=== PATIENT | male | born 1955 | race African-American/Black ===

== ENCOUNTER 2019-03-20 13:22 | Outpatient (CLI) | payer MEDICARE ==
--- NOTE | 2019-03-20 14:32 | RAD ---
XR Chest Pa Lat STANDARD HISTORY: Tachycardia COMPARISON: 11/02/2013 FINDINGS: The heart size is normal. The aorta is tortuous. The lungs are well expanded without focal areas of consolidation, pneumothorax or pleural effusions there are degenerative changes in the spine.. IMPRESSION: No radiographic evidence of acute cardiopulmonary process.
--- NOTE | 2019-03-20 14:45 | CT ---
CT ABDOMEN AND PELVIS WITH ORAL AND IV CONTRAST: HISTORY: Colon Cancer. Splenic flexure mass found during colonoscopy done today COMPARISON: Noncontrasted study of 02/16/2013 FINDINGS: The lung bases are unremarkable. No calcified gallstones are seen. No free air or free fluid is seen in the abdomen or pelvis. The spleen, pancreas, adrenal glands and kidneys are normal. There is a 7 mm cyst in the posterior aspect of the right lobe of the liver. There is an enlarged lef t para-aortic lymph node measuring 2.2 cm. There are vascular calcifications without evidence of aneurysmal dilatation of the abdominal aorta. T here are degenerative changes in the spine. No osteolytic or osteoblastic lesions are seen. A small hiatal hernia is noted. There is a splenic flexure mass. No abnormal dilatation of the small bowel loops is seen. A normal-appearing appendix is noted. IMPRESSION: Colonic malignancy with probable retroperitoneal lymph node metastasis.
[2019-03-20] MEDS ORDERED: Iopamidol 370 76% 100 ML VIAL ONE (16:20)
== END 2019-03-20 13:23 | disposition home or self-care (01) ==
LOC: BICCT 13:22
PROVIDERS: ATTEND Internal Medicine Gastroenterology
DX: C18.5 Malignant neoplasm of splenic flexure (principal); C79.9 Secondary malignant neoplasm of unspecified site
CPT/HCPCS: 36415; 71046; 74177; 80053; 82378; 85025; Q9967

== ENCOUNTER 2019-04-06 09:44 | Outpatient (CLI) | payer MEDICARE ==
--- NOTE | 2019-04-06 11:44 | PET ---
Nuclear medicine FDG PET/CT: (Positron emission tomography and computed tomography) DATE: 04/06/2019 HISTORY: 64-year-old male with colon cancer, initial staging. COMPARISON: none TECHNIQUE: IV injection of F-18 fluorodeoxyglucose (FDG) dose: 12.2 mCi. PET scan and attenuation correction CT performed from skull base to proximal thighs. FINDINGS: SUV (standard uptake values) numbers given are maximum SUVs. QCLR used. 1.5 x 1 cm mildly enlarged left supraclavicular lymph node with borderline FDG uptake, SUV 2.9. No suspicious FDG-avid lesions in the chest. Small focus of increased uptake, SUV 4.9, in left lobe of liver, hepatic segment 2. Segment of the splenic flexure of left colon with SUV of 11.5. Enlarged left para-aortic retroperitoneal lymph node with SUV of 8.8. Focus of increased uptake located in the region of the lower portion of prostate gland at midline or slightly to the left of that. SUV 7.8. IMPRESSION: 1) colon cancer involving splenic flexure of colon. 2) malignant metastatic left para-aortic retroperitoneal lymph node. 3) suspicious for single small solitary hepatic metastasis in left lobe. 4) FDG-avid focus in region of prostate gland. Uncertain whether this represents a prostate cancer or urine within urethra. Recommend correlation with serum PSA levels, and consider MRI of the prostate gland.
== END 2019-04-06 09:45 | disposition home or self-care (01) ==
LOC: PET 09:44
PROVIDERS: ATTEND Internal Medicine Hematology & Oncology
DX: C18.5 Malignant neoplasm of splenic flexure (principal); C77.2 Secondary and unspecified malignant neoplasm of intra-abdominal lymph nodes
CPT/HCPCS: 78815; A9552

== ENCOUNTER 2019-05-01 09:27 | Outpatient (CLI) | payer MEDICARE ==
[2019-05-01 11:08] VITALS: BMI 40.6
[2019-05-01 12:20] LABS: Anion Gap 15 mmol/L (10-20); BUN (Urea Nitrogen) 14 mg/dL (8.4-25.7); Calc. Creatinine Clearance 92 mL/min (70-130); Calcium 9.8 mg/dL (7.8-10.44); Carbon Dioxide 19 mmol/L (23-31); Chloride 106 mmol/L (98-107); Estimated GFR-MDRD 65; Glucose 237 mg/dL (80-115); Sodium 137 mmol/L (136-145)
[2019-05-01 12:33] LABS: Hemoglobin A1c 7.2 % (4.0-6.0)
[2019-05-01 12:34] LABS: #Lymphocytes 1.6 thou/uL (1.20-3.40); #Monocytes 0.6 thou/uL (0.11-0.59); #Neutrophils 9.3 thou/uL (1.40-6.50); %Eosinophils 0.2 % (0.0-10.0); %Lymphocytes 13.7 % (21.0-51.0); %Monocytes 5.3 % (0.0-10.0); %Neutrophils 80.7 % (42.0-75.0); Band 2 % (5-11); Hemoglobin 11.2 g/dL (14.0-18.0); Lymphocytes 13 % (21-51); MDiff Complete? YES; Mean Corpuscular HGB CONC 30.7 g/dL (32.0-36.0); Mean Corpuscular Hemoglobin 24.6 pg (27.0-31.0); Mean Corpuscular Volume 80.2 fL (78.0-98.0); Mean Platelet Volume 9.3 fL (7.4-10.4); Monocytes 12 % (0-10); Neutrophil 73 % (42-75); Platelet Count 287 thou/uL (130-400); RBC Distribution Width 20.3 % (11.5-14.5); RBC Morphology Normal; Red Blood Cell (RBC) Count 4.55 mill/uL (4.70-6.10); White Blood Cell (WBC) Count 11.5 thou/uL (4.8-10.8)
--- NOTE | 2019-05-01 15:24 | EKG ---
Test Reason : Blood Pressure : / mmHG Vent. Rate : 095 BPM Atrial Rate : 095 BPM P-R Int : 142 ms QRS Dur : 090 ms QT Int : 378 ms P-R-T Axes : 061 015 040 degrees QTc Int : 475 ms Normal sinus rhythm Normal ECG When compared with ECG of 02-NOV-2013 15:18, QT has lengthened Confirmed by DR. Dirk WATERMAN ([id number]) on 05/01/2019 3:24:10 PM Referred By: TOBIAS Confirmed By:DR. Dirk WATERMAN
== END 2019-05-01 09:28 | disposition home or self-care (01) ==
LOC: LABBT 09:27
PROVIDERS: ATTEND Surgery
DX: Z01.818 Encounter for other preprocedural examination (principal); C18.9 Malignant neoplasm of colon, unspecified
CPT/HCPCS: 80048; 83036; 85025; 93005; 93010

== ENCOUNTER 2019-05-21 13:04 | Inpatient (IN) | payer MEDICARE ==
--- NOTE | 2019-05-21 14:41 | CON ---
DATE OF CONSULTATION: The patient was seen at [facility]. The patient has acute kidney injury. This patient is followed up in clinic. I would recommend hydration for this patient as well as changing Lovenox to unfractionated heparin and starting the patient on a bicarb drip to control the acidosis. Job ID: [id number]
[2019-05-21] MEDS: Sodium Bicarbonate 150 MEQ in Dextrose 5% in Water 1,000 ML IV SCH (15:20)
--- NOTE | 2019-05-21 15:27 | PDOC.FPRHP ---
- History of Present Illness Chief Complaint: weakness, vomiting History of Present Illness: Pt recently discharged from hospital s/p colectomy for adenocarcinoma complicated by saddle embolus found on CTA. Stablizied and went to inpt rehab facility where he had episode of hypotension, "couldn't see anything"/lost his vision but denies syncope, and received IV fluids. His labs then showed a creatinine rise from his baseline of 1.4 to 4.0 yesterday and then 6.[address] Park was called and recommended inpatient admission for treatment of NIKA. Otherwise, pt has been feeling generally weak since discharge. Endorses vomiting after meals frequently. Denies fever or other symptoms. Has had buitrago catheter in place and was diagnosed with CAUTI just prior to discharge. Plan was to d/c the buitrago and start flomax, but this has not yet been done. Pt denies pain of any sort except for some pain "in his bottom" where he has a sacral ulcer. ED Course: Direct admit from inpt rehab. - Allergies/Adverse Reactions Allergies Allergy/AdvReac Type Severity Reaction Status Date / Time No Known Allergies Allergy Verified 05/16/19 22:53 - Home Medications Medication Instructions Recorded Confirmed Type Acetaminophen [Tylenol Regular 650 mg PO Q6H PRN tab 05/19/19 Rx Strength] Enoxaparin Sodium [Lovenox] 100 mg SC 0900,2100 syringe 05/19/19 Rx HumaLOG [HumaLOG Vial] SC .BEDTIME SLIDING SC PRN vial 05/19/19 Rx HumaLOG [HumaLOG Vial] SC .MILD SLIDING SCALE PRN vial 05/19/19 Rx Lisinopril [Prinivil] 5 mg PO DAILY #30 tablet 05/19/19 Rx Metoprolol Tartrate [Lopressor] 12.5 mg PO BID tab 05/19/19 Rx Ondansetron [Zofran ODT] 4 mg PO Q6H PRN tab 05/19/19 Rx Pantoprazole [Protonix] 40 mg PO DAILY tab 05/19/19 Rx Piperacillin/Tazobactam [Zosyn] 3.375 gm IVPB 0200,0800,1400,2000 05/19/19 Rx 14 Days vial Rosuvastatin [Crestor] 20 mg PO DAILY tab 05/19/19 Rx Tamsulosin HCl [Flomax] 0.4 mg PO DAILY cap 05/19/19 Rx metFORMIN [Glucophage] 1,000 mg PO BID-WM tab 05/19/19 Rx - History PMHx: - Colon adenocarcinoma - Saddle embolus - HTN - HLD - DM - Anemia - CKD PSHx: - Colectomy for adenocarcinoma FHx: nc Social: - Engaged to fiance. - Denies smoking, alcohol, drugs. - Review of Systems General: denies: fever/chills, weight/appetite/sleep changes Eyes: reports: vision changes (loss of vision during hypotensive episode) ENT: denies: nasal congestion, rhinorrhea Respiratory: reports: shortness of breath. denies: cough, congestion Cardiovascular: denies: chest pain, palpitation, edema Gastrointestinal: reports: vomiting. denies: nausea, diarrhea, constipation Genitourinary: denies: dysuria Skin: denies: rashes Musculoskeletal: denies: pain Neurological: reports: weakness. denies: syncope Psychological: denies: anxiety, depression - Vital signs BP: 106/64 HR: 102 RR: 20 Tmax: 99.1 Pox: 97% on RA - Physical Exam Constitutional: awake, alert and oriented HEENT: normocephalic and atraumatic, PERRLA, conjunctiva clear, no scleral icterus, grossly normal hearing, normal nasal mucosa, MMM Neck: trachea midline Heart: RRR, normal S1/S2, no murmurs/rubs/gallops Lungs: CTAB -Lungs: SOB while talking, moderate respiratory distress, no crackles or wheezing on exam Musculoskeletal: normal structure, normal tone Neurological: no focal deficit Skin: no rash/lesions Heme/Lymphatic: no unusual bruising or bleeding Psychiatric: normal mood and affect FMR H&P: Results - Labs Result Diagrams: 05/21/19 18:45 05/21/19 18:45 FMR H&P: A/P - Problem List (1) Acute kidney injury Current Visit: Yes Status: Acute Code(s): N17.9 - ACUTE KIDNEY FAILURE, UNSPECIFIED (2) Adenocarcinoma of colon Current Visit: No Status: Chronic Code(s): C18.9 - MALIGNANT NEOPLASM OF COLON, UNSPECIFIED (3) CKD (chronic kidney disease) Current Visit: No Status: Chronic Code(s): N18.9 - CHRONIC KIDNEY DISEASE, UNSPECIFIED Qualifiers: Chronic kidney disease stage: stage 2 (mild) Qualified Code(s): N18.2 - Chronic kidney disease, stage 2 (mild) (4) Diabetes Current Visit: No Status: Chronic Code(s): E11.9 - TYPE 2 DIABETES MELLITUS WITHOUT COMPLICATIONS Qualifiers: Diabetes mellitus type: type 2 Diabetes mellitus long-term insulin use: without long-term use (5) HLD (hyperlipidemia) Current Visit: No Status: Chronic Code(s): E78.5 - HYPERLIPIDEMIA, UNSPECIFIED (6) HTN (hypertension) Current Visit: No Status: Chronic Code(s): I10 - ESSENTIAL (PRIMARY) HYPERTENSION - Plan 64-year-old male w/ recent hospitalization for colectomy, adenocarcinoma of colon, and saddle embolus, readmitted from inpatient rehab facility for: Acute kidney injury, etiology currently unknown, on CKD stage 3 - pt discharged w/ Cr of 1.41, returning w/ Cr of 6.9 - Anion Gap of 13 - Possibly prerenal 2/2 increased output from colostomy, feeling weak and decreased PO intake, also vomiting after meals this weekend - Other causes such as intra-renal or acute tubular necrosis not ruled out. Post -renal causes such as obstruction unlikely since pt has had Buitrago since his discharge last Wednesday - Pt was discharged on ceftriaxone for UTI and it is unclear from records whether this resolved or if antibiotics were discontinued. - Dr. Park consulted, appreciate recs. - Fluid resuscitate w/ sodium bicarbonate in D5W at 125 ml/hr - Bilateral Renal U/S pending - CMP and CBC in AM - Urine sodium, urine creatinine - Strict I/Os, continue buitrago catheter - Hold all nephrotoxic medications Sacral wound ulcer, stage 3 - Wound care consult Recent history of adenocarcinoma s/p colectomy, complicated by saddle embolus treated w/ anticoagulation - Per Dr. Park, lovenox changed to heparin 5000 Units TID subQ Normocytic anemia - Hgb 7.7 on admission - continue to monitor Chronic conditions: HTN HLD Diabetes mellitus - pt has been hypotensive, hold BP meds - continue statin - hold metformin, insulin sliding scale. Code : DNR Diet: renal low protein, carb consistent VTE PPx: on heparin for saddle embolus GI PPx: protonix Disposition/LOS: Admit to inpatient, medical. FMR H&P: Upper Level - Plan Date/Time: 05/21/19 1524 IDhaval MD, have evaluated this patient and agree with findings/plan as outlined by internal controls manager resident. Pertinent changes/additions are listed here. Pritesh Deleon is a 64 year old M with a PMH of DM2, CKD, HTN, CAD, recent hx of saddle embolus, hx of adenocarcinoma and recent hospital stay for colectomy. He was directly admitted to [facility] today from outside rehab facility for worsening kidney function. When patient was discharged from previous hospital stay on 05/18/19, his Cr was 1.41. Today his Cr had worsened to 6.1. Patient states that he has had worsening weakness over the last day or two. There were an episode, as recalled by the patient, where he got very lightheaded at the rehab facility and was told his BP was low. They gave him fluids in the facility and these symptoms improve. He denies any new pain, fever, chills, chest pain, dyspnea, n/v, abdominal painMD at rehab facility reported significant output from ostomy, about 1.5 L in a day. During his hospital stay , he had a prolonged stay because he developed a saddle embolus. Dr. Park was consulted by MD at Rehab facility. Recommended admission. Dr. Park saw patient on admission here at [facility] and recommended D5W with sodium bicarb , also recommended heparin for treatment of saddle embolus. Bilateral renal US was ordered. Patient is stable from a respiratory standpoint. When he was discharged from hospital on 05/18, he was not requiring O2 to maintain decent sats. He was on supplemental O2 when evaluated on the floor and his BP was 103 systolic, afebrile, vitals have not yet been recorded yet. We are admitted patient to inpatient surgical. Dr. Park has been consulted. Will continue D5W with Sodium bicarb, continue heparin for tx of saddle embolism. Checking b/l renal US. It is possible that the reason for the NIKA could be prerenal in nature. The patient had the recent episode of hypotension in the rehab facility and he has had significant output from colostomy. Will consult Dr. Landin in the morning to let him know patient has returned to hospital. Will monitor vitals closely overnight and trend labs. Please see internal controls manager note above for full H&P, which I have reviewed and agree with.
[2019-05-21] MEDS ORDERED: Ondansetron PF 4 MG/2 ML Vial IVP PRN (15:53)
[2019-05-21] MEDS ORDERED: Acetaminophen 325 MG TAB PO PRN (15:53)
[2019-05-21] MEDS ORDERED: Acetaminophen 650 MG Suppository PR PRN (15:53)
[2019-05-21] MEDS ORDERED: Ondansetron ODT 4 MG TAB PO PRN (15:53)
--- NOTE | 2019-05-21 18:23 | ULT ---
RENAL ULTRASOUND: History: Acute renal insufficiency. FINDINGS: Real-time imaging of the right and left kidneys were performed. The right kidney measures 11.4, the l eft kidney measures 13.1 cm in size. No signs of cysts, mass, or obstruction. The bladder was empty a t the time of this exam. Of incidental note is what appears to be a distended gallbladder or possibly some type of fluid in th e region of the gallbladder. This is incompletely assessed on this exam. IMPRESSION: 1. Unremarkable renal ultrasound. 2. Possible distended gallbladder versus more likely some type of septated fluid collection in the re gion of the gallbladder. In reviewing a previous CT angio of 05-15-19 there is some pericapsular fluid seen adjacent to the liver and this probably the density seen on this ultrasound. POS: JACK
[2019-05-21 19:03] LABS: #Eosinphils 0.2 thou/uL (0.0-0.7); #Lymphocytes 1.3 thou/uL (1.20-3.40); #Monocytes 0.6 thou/uL (0.11-0.59); #Neutrophils 6.6 thou/uL (1.40-6.50); %Basophils 0.2 % (0.0-1.0); %Eosinophils 2.3 % (0.0-10.0); %Lymphocytes 14.6 % (21.0-51.0); %Monocytes 6.4 % (0.0-10.0); %Neutrophils 76.5 % (42.0-75.0); Hemoglobin 7.7 g/dL (14.0-18.0); Mean Corpuscular HGB CONC 31.3 g/dL (32.0-36.0); Mean Corpuscular Hemoglobin 24.8 pg (27.0-31.0); Mean Platelet Volume 8.9 fL (7.4-10.4); Platelet Count 388 thou/uL (130-400); Red Blood Cell (RBC) Count 3.12 mill/uL (4.70-6.10); White Blood Cell (WBC) Count 8.6 thou/uL (4.8-10.8)
[2019-05-21 19:23] LABS: ALT (SGPT) 42 U/L (8-55); AST (SGOT) 59 U/L (5-34); Albumin 2.4 g/dL (3.4-4.8); Alkaline Phosphatase 128 U/L (40-110); Anion Gap 19 mmol/L (10-20); BUN (Urea Nitrogen) 33 mg/dL (8.4-25.7); Bilirubin, Total 0.5 mg/dL (0.2-1.2); Calc. Creatinine Clearance 0 mL/min (70-130); Calcium 7.7 mg/dL (7.8-10.44); Carbon Dioxide 14 mmol/L (23-31); Chloride 103 mmol/L (98-107); Estimated GFR-MDRD 9; Globulin 4.3 g/dL (2.4-3.5); Glucose 96 mg/dL (80-115); Potassium 4.9 mmol/L (3.5-5.1); Protein, Total 6.7 g/dL (5.8-8.1); Sodium 131 mmol/L (136-145)
[2019-05-21] MEDS ORDERED: Dextrose 50% Abboject 50 ML SYRINGE SLOW IVP PRN (20:02)
[2019-05-21] MEDS ORDERED: Dextrose 5% in Water 1,000 ML IV PRN (20:02)
[2019-05-21] MEDS ORDERED: Heparin 5,000 UNITS/ML VIAL SC SCH (21:00)
[2019-05-21] MEDS ORDERED: Prevnar 13-Val Conj/PF 0.5 ML SYRINGE IM ONE (21:00)
[2019-05-21 21:48] LABS: Platelet Count 399 thou/uL (130-400)
--- NOTE | 2019-05-21 21:48 | RAD ---
XR Chest 1 View HISTORY: Dyspnea and tachycardia. COMPARISON: 05/20/2019 study. FINDINGS: The heart size appears borderline enlarged. There are atherosclerotic changes of aorta. Racheal vation to the right hemidiaphragm is again noted. Some linear atelectatic change or scar is seen within the lung bases. IMPRESSION: Borderline cardiomegaly with linear atelectasis or scar within the lung bases.
[2019-05-21 21:53] LABS: INR-International Normal Ratio 1.3; Prothrombin Time 16.6 SEC (12.0-14.7)
[2019-05-21 21:54] LABS: PTT 74.3 SEC (22.9-36.1)
[2019-05-21] MEDS ORDERED: Sodium Chloride 0.9% 500 ML IV SCH (22:00)
[2019-05-22] MEDS: Sodium Bicarbonate 150 MEQ in Dextrose 5% in Water 1,000 ML IV SCH ×3 (00:02→17:08)
[2019-05-22] MEDS: Heparin 25,000 units/D5W 500 ML IVPB SCH ×2 (00:03→16:52)
[2019-05-22] MEDS: Heparin 10,000 UNITS/ 10 ML VIAL SLOW IVP SCH (00:03)
[2019-05-22] MEDS ORDERED: Lactated Ringer's 1,000 ML IV SCH (00:30)
[2019-05-22 00:50] LABS: Anion Gap 20 mmol/L (10-20); BUN (Urea Nitrogen) 33 mg/dL (8.4-25.7); Calc. Creatinine Clearance 14 mL/min (70-130); Calcium 7.4 mg/dL (7.8-10.44); Carbon Dioxide 15 mmol/L (23-31); Chloride 103 mmol/L (98-107); Estimated GFR-MDRD 8; Glucose 90 mg/dL (80-115); Potassium 4.7 mmol/L (3.5-5.1); Sodium 133 mmol/L (136-145)
[2019-05-22 02:06] LABS: #Eosinphils 0.2 thou/uL (0.0-0.7); #Lymphocytes 1.8 thou/uL (1.20-3.40); #Monocytes 0.8 thou/uL (0.11-0.59); #Neutrophils 7.9 thou/uL (1.40-6.50); %Basophils 0.1 % (0.0-1.0); %Eosinophils 2.1 % (0.0-10.0); %Lymphocytes 16.9 % (21.0-51.0); %Monocytes 7.6 % (0.0-10.0); %Neutrophils 73.4 % (42.0-75.0); Hemoglobin 7.6 g/dL (14.0-18.0); Mean Corpuscular HGB CONC 31.3 g/dL (32.0-36.0); Mean Corpuscular Hemoglobin 24.5 pg (27.0-31.0); Mean Corpuscular Volume 78.3 fL (78.0-98.0); Mean Platelet Volume 8.9 fL (7.4-10.4); Platelet Count 360 thou/uL (130-400); White Blood Cell (WBC) Count 10.7 thou/uL (4.8-10.8)
[2019-05-22 02:39] LABS: Actual Bicarbonate (HCO3a) 15.9 mEq/L (22-28); Base Excess (BEa) -6.4 mEq/L (-2.0 to +3.0); Calcium, Ionized 1.03 mmol/L (1.12-1.30); Carboxyhemoglobin (COHb) 1.1 gm% (0.0-3.0); Hemoglobin (Hb) 8.4 g/dL (14.0-18.0); O2 Tension (PaO2) 67.1 mmHg (> 80.0); Potassium - ABG Lab 4.67 mmol/L (3.70-5.30); pH, Arterial 7.48 (7.35-7.45)
[2019-05-22 02:57] LABS: CO2 Tension 21.9 mmHg (35.0-45.0); Puncture Site RBRACHIAL
[2019-05-22 02:58] LABS: ALV-art Gradient 162.205 (0-20)
[2019-05-22] MEDS ORDERED: Norepinephrine 8 MG in Dextrose 5% in Water 242 ML IVPB PRN (03:04)
[2019-05-22 03:06] LABS: ALT (SGPT) 34 U/L (8-55); AST (SGOT) 49 U/L (5-34); Albumin 2.2 g/dL (3.4-4.8); Alkaline Phosphatase 126 U/L (40-110); Anion Gap 18 mmol/L (10-20); BUN (Urea Nitrogen) 33 mg/dL (8.4-25.7); Bilirubin, Total 0.5 mg/dL (0.2-1.2); Calc. Creatinine Clearance 14 mL/min (70-130); Calcium 7.5 mg/dL (7.8-10.44); Carbon Dioxide 16 mmol/L (23-31); Chloride 103 mmol/L (98-107); Estimated GFR-MDRD 8; Globulin 3.9 g/dL (2.4-3.5); Glucose 113 mg/dL (80-115); Potassium 4.7 mmol/L (3.5-5.1); Protein, Total 6.1 g/dL (5.8-8.1); Sodium 132 mmol/L (136-145)
[2019-05-22] MEDS ORDERED: Heparin 10,000 UNITS/ 10 ML VIAL FS SCH (03:30)
[2019-05-22] MEDS ORDERED: Vancomycin HCl 1.25 GM in Sodium Chloride 0.9% 250 ML 250 ML IVPB SCH (03:45)
[2019-05-22] MEDS: MEROPENEM 1 GM/50 ML 1 GM in Premix Bag 1 BAG IVPB SCH (04:27)
--- NOTE | 2019-05-22 04:48 | PDOC.EVN ---
Event Note - Event Note Event Note: Pt's decompensated with pressures in 80's/40's. Did not respond to 1.5 L bolus around midnight. Oxygen saturations remained stable. CXR revealed mild congestion, on exam lungs were clear to auscultation, no LE edema, BNP elevated ~500. Due to pt not holding pressures he was transferred to ICU and levophed drip started. Hgb stable. Spoke with Dr. Park who recommended a trialysis catheter as he would need dialysis in the near future for NIKA, creatinine ~8, not responding to fluids, oliguric. Dr. Salguero placed trialysis catheter which was used for pressors beginning around [id number]. Pt AAO x 3 during episode. Tai Mcmillan,
--- NOTE | 2019-05-22 06:28 | PDOC.FM ---
- Subjective Subjective: Overnight experienced hypotension, did not respond to fluids therefore was started on pressors and continues to need them this AM to maintain BP. Due to ESRD tunnel catheter was placed. This morning reports feeling well. Denies chest pain or SOB. - Objective MAR Reviewed: Yes Vital Signs & Weight: Vital Signs (12 hours) Temp Temp Temp Pulse Pulse Pulse Pulse 05/22/19 01:43 98.5 F 98.5 F 128 H 135 H 134 H 05/22/19 01:42 05/22/19 01:35 98.5 F 128 H 05/21/19 23:00 98.3 F 124 H 05/21/19 19:53 98.6 F 120 H Pulse Resp Resp BP BP BP BP 05/22/19 01:43 135 H 28 H 68/41 L 94/57 L 87/46 L 79/44 L 05/22/19 01:42 05/22/19 01:35 28 H 05/21/19 23:00 20 05/21/19 19:53 24 H BP Pulse Ox Pulse Ox Pulse Ox Pulse Ox Pulse Ox 05/22/19 01:43 93 L 90 L 92 L 93 L 05/22/19 01:42 58/48 L 05/22/19 01:35 68/41 L 93 L 05/21/19 23:00 99/51 L 95 05/21/19 19:53 107/65 94 L Weight Weight 104.326 kg Result Diagrams: 05/22/19 01:50 05/22/19 01:50 Phys Exam - Physical Examination Constitutional: NAD HEENT: moist MMs Neck: supple Respiratory: no wheezing, clear to auscultation bilateral Cardiovascular: RRR Gastrointestinal: soft, non-tender, positive bowel sounds Musculoskeletal: no edema, pulses present Neurological: moves all 4 limbs Psychiatric: normal affect, A&O x 3 Skin: no rash Dx/Plan - Plan Plan: Shock requiring pressors, likely multifactorial cardiogenic/septic - Attempt to wean pressors - Giving 1U pRBCs this morning due to anemia - Palliative care consulted Acute kidney injury, unknown etiology, on CKD stage 3 - Dr. Park consulted, appreciate recs - Bilateral Renal US unremarkable - Urine sodium, urine creatinine pending - Strict I/Os, continue buitrago catheter. Hold all nephrotoxic medications - Continue D5W with NaHCO3 @125 ml - Trialysis catheter placed 05/22 Sacral wound ulcer, stage 3 - Wound care Recent history of adenocarcinoma s/p colectomy, complicated by saddle embolus treated w/ anticoagulation - Currently on Heparin gtt - Continue to check PTT and adjust accordingly Normocytic anemia - Hgb 7.6 this AM - Transfusing 1U pRBCs, 2hr post transfusion H&H - Continue to monitor HTN - Currently hypotensive HLD - On Crestor at home. Currently held Diabetes mellitus - ACHS accuchecks. Hypoglycemic protocol - Hold metformin, SSI. Code: DNR Diet: Renal low protein, carb consistent VTE PPx: Ther. heparin for saddle embolus GI PPx: Protonix
[2019-05-22 07:14] LABS: PTT Greater than 250.0 SEC (22.9-36.1)
[2019-05-22 08:26] LABS: Lactic Acid 1.3 mmol/L (0.5-2.2)
[2019-05-22] MEDS ORDERED: AMOXicillin 250 MG CAP PO SCH (09:00)
[2019-05-22] MEDS ORDERED: Rosuvastatin 20 MG TAB PO SCH (09:00)
--- NOTE | 2019-05-22 09:36 | RAD ---
SINGLE VIEW CHEST: Date: 05/22/19 COMPARISON: 05/14/19. HISTORY: Respiratory distress. FINDINGS: Single view of the chest shows a normal sized cardiomediastinal silhouette. There is no evidence of c onsolidation, mass, or pleural effusion. Degenerative changes are seen in the spine. IMPRESSION: No evidence of acute cardiopulmonary disease. POS: CET
--- NOTE | 2019-05-22 10:15 | PRG ---
DATE OF SERVICE: 05/22/2019 During night Mr. Deleon became hypotensive and he was transferred to the ICU, where he is currently on the Levophed drip. His overall prognosis is extremely poor. He also has advanced acute NIKA, possibly secondary to renal vein thrombosis given that he has already has a pulmonary embolus. In the event, because of his renal insufficiency has been switched to unfractionated heparin instead of Lovenox. He remains on pressor agents. We will continue to follow with the boiler reliner. Job ID: [id number]
--- NOTE | 2019-05-22 10:24 | PRG ---
DATE OF SERVICE: 05/22/2019 SUBJECTIVE: Patient was seen and examined at bedside and overnight events noted. Patient denies any shortness of breath or chest pain or palpitation. No history of nausea or vomiting or diarrhea or fever or chills or cramps. OBJECTIVE: GENERAL: This is an obese male, in no apparent distress. Very lethargic. VITAL SIGNS: Temperature 99.0. Heart rate 103. Respiratory rate 27. Blood pressure 96/53. HEENT: Atraumatic, normocephalic. Oral mucosa is moist NECK: Supple. CARDIOVASCULAR: S1, S2 heard. Rate and rhythm regular. RESPIRATORY: Clear to auscultation. GASTROINTESTINAL: Abdomen is soft. MUSCULOSKELETAL: No tenderness. No edema. DERMATOLOGIC: No skin rash. NEUROLOGIC: Alert and awake and oriented X3. No focal neurologic deficits. Moving all the extremities. PSYCHIATRIC: Mood and affect normal. LABORATORY DATA: Hemoglobin is 7.6. Potassium 4.7, BUN is 33, and creatinine is 8.09. ASSESSMENT AND PLAN: 1. Acute kidney injury. Creatinine is stable. No much significant urine output. No acute indication for dialysis. Continue supportive care. The patient was hypotensive, most likely ischemic acute tubular necrosis. 2. Hyponatremia. Continue hydration. 3. Metabolic acidosis, per BMP. 4. Lactic acidosis, better. 5. Hypoalbuminemia. 6. Anemia of chronic disease. 7. Edema, controlled. 8. History of hypertension and currently hypotensive. Continue supportive care including antibiotics. Avoid nephrotoxins. Renally dose the medications. Monitor vancomycin level and we will follow. Thank you for the consult. Job ID: [id number]
[2019-05-22] MEDS: HumaLOG 300 UNITS/3 ML VIAL SC PRN ×3 (11:02→21:17)
--- NOTE | 2019-05-22 13:26 | PDOC.GSPN ---
Surgery Progress Note: Subj - Subjective Narrative: Patient awake and alert. Denies pain Surgery Progress Note: Obj - Vital signs Vital signs: Vital Signs - Most Recent Temp Pulse Resp BP Pulse Ox 97.5 F L 128 H 28 H 94/57 L 100 05/22/19 12:00 05/22/19 01:43 05/22/19 01:43 05/22/19 09:47 05/22/19 08:00 - Physical Exam General: no distress Abdomen: soft, non tender, nondistended Wound: ostomy/colostomy (mucosa pink. stool in bag) Surgery Progress Note: Results - Labs Result Diagrams: 05/22/19 01:50 05/22/19 01:50 Lab results: Laboratory Results - last 24 hr 05/22/19 05/22/19 05/22/19 01:49 01:50 01:50 WBC 10.7 RBC 3.10 L Hgb 7.6 L Hct 24.3 L MCV 78.3 MCH 24.5 L MCHC 31.3 L RDW 19.0 H Plt Count 360 MPV 8.9 Neutrophils % 73.4 Neutrophils % (Manual) Not Reportable Lymphocytes % 16.9 L Monocytes % 7.6 Eosinophils % 2.1 Basophils % 0.1 Neutrophils # 7.9 H Lymphocytes # 1.8 Monocytes # 0.8 H Eosinophils # 0.2 Basophils # 0.0 APTT Specimen Type Puncture Site Bicarbonate Actual ABG pH ABG pCO2 ABG pO2 ABG O2 Sat Calc/Jacey ABG O2 Content ABG Base Excess ABG Hematocrit ABG Hemoglobin ABG Oxyhemoglobin ABG Carboxyhemoglobin ABG Methemoglobin ABG Deoxyhemoglobin A-a O2 Gradient Ionized Calcium Inspired O2 Sodium 132 L Potassium 4.7 Chloride 103 Carbon Dioxide 16 L Anion Gap 18 BUN 33 H Creatinine 8.09 H Estimated GFR (MDRD) 8 Glucose 113 POC Glucose Lactic Acid 2.4 H Calcium 7.5 L Total Bilirubin 0.5 AST 49 H ALT 34 Alkaline Phosphatase 126 H B-Natriuretic Peptide Serum Total Protein 6.1 Albumin 2.2 L Globulin 3.9 H Albumin/Globulin Ratio 0.6 L Blood Type Antibody Screen Crossmatch 05/22/19 05/22/19 05/22/19 01:50 01:56 02:19 WBC RBC Hgb Hct MCV MCH MCHC RDW Plt Count MPV Neutrophils % Neutrophils % (Manual) Lymphocytes % Monocytes % Eosinophils % Basophils % Neutrophils # Lymphocytes # Monocytes # Eosinophils # Basophils # APTT Specimen Type ARTERIAL Puncture Site RBRACHIAL Bicarbonate Actual 15.9 L ABG pH 7.48 H ABG pCO2 21.9 L* ABG pO2 67.1 ABG O2 Sat Calc/Jacey 93.3 L ABG O2 Content 11.0 L ABG Base Excess -6.4 L ABG Hematocrit 25.0 L ABG Hemoglobin 8.4 L ABG Oxyhemoglobin 92.0 L ABG Carboxyhemoglobin 1.1 ABG Methemoglobin 0.30 ABG Deoxyhemoglobin 6.6 H A-a O2 Gradient 162.205 H Ionized Calcium 1.03 L Inspired O2 36 Sodium 130 L Potassium 4.67 Chloride 101 Carbon Dioxide Anion Gap BUN Creatinine Estimated GFR (MDRD) Glucose POC Glucose 112 H Lactic Acid Calcium Total Bilirubin AST ALT Alkaline Phosphatase B-Natriuretic Peptide 514.7 H Serum Total Protein Albumin Globulin Albumin/Globulin Ratio Blood Type Antibody Screen Crossmatch 05/22/19 05/22/19 05/22/19 03:09 06:18 07:55 WBC RBC Hgb Hct MCV MCH MCHC RDW Plt Count MPV Neutrophils % Neutrophils % (Manual) Lymphocytes % Monocytes % Eosinophils % Basophils % Neutrophils # Lymphocytes # Monocytes # Eosinophils # Basophils # APTT Greater than 250.0 H* Specimen Type Puncture Site Bicarbonate Actual ABG pH ABG pCO2 ABG pO2 ABG O2 Sat Calc/Jacey ABG O2 Content ABG Base Excess ABG Hematocrit ABG Hemoglobin ABG Oxyhemoglobin ABG Carboxyhemoglobin ABG Methemoglobin ABG Deoxyhemoglobin A-a O2 Gradient Ionized Calcium Inspired O2 Sodium Potassium Chloride Carbon Dioxide Anion Gap BUN Creatinine Estimated GFR (MDRD) Glucose POC Glucose Lactic Acid 1.3 Calcium Total Bilirubin AST ALT Alkaline Phosphatase B-Natriuretic Peptide Serum Total Protein Albumin Globulin Albumin/Globulin Ratio Blood Type B POSITIVE Antibody Screen NEGATIVE Crossmatch See Detail 05/22/19 10:52 WBC RBC Hgb Hct MCV MCH MCHC RDW Plt Count MPV Neutrophils % Neutrophils % (Manual) Lymphocytes % Monocytes % Eosinophils % Basophils % Neutrophils # Lymphocytes # Monocytes # Eosinophils # Basophils # APTT Specimen Type Puncture Site Bicarbonate Actual ABG pH ABG pCO2 ABG pO2 ABG O2 Sat Calc/Jacey ABG O2 Content ABG Base Excess ABG Hematocrit ABG Hemoglobin ABG Oxyhemoglobin ABG Carboxyhemoglobin ABG Methemoglobin ABG Deoxyhemoglobin A-a O2 Gradient Ionized Calcium Inspired O2 Sodium Potassium Chloride Carbon Dioxide Anion Gap BUN Creatinine Estimated GFR (MDRD) Glucose POC Glucose 217 H Lactic Acid Calcium Total Bilirubin AST ALT Alkaline Phosphatase B-Natriuretic Peptide Serum Total Protein Albumin Globulin Albumin/Globulin Ratio Blood Type Antibody Screen Crossmatch Surgery Progress Note: A/P - Problem (1) Adenocarcinoma of colon Current Visit: No Code(s): C18.9 - MALIGNANT NEOPLASM OF COLON, UNSPECIFIED Status: Chronic - Plan Plan: I suspect the high output ileostomy to be partially responsible for his renal failure. -continue supportive care -appreciate palliative care
[2019-05-22] MEDS: Norepinephrine 8 MG in Dextrose 5% in Water 242 ML IVPB SCH (16:52)
[2019-05-23] MEDS: MEROPENEM 1 GM/50 ML 1 GM in Premix Bag 1 BAG IVPB SCH (04:07)
[2019-05-23] MEDS: Sodium Bicarbonate 150 MEQ in Dextrose 5% in Water 1,000 ML IV SCH ×2 (04:07→13:48)
--- NOTE | 2019-05-23 06:12 | PDOC.FM ---
- Subjective Subjective: Feeling well. No overnight events. Still on the levoph. Denies chest pain, shortness of breath, lightheadedness. Denies pain. - Objective MAR Reviewed: Yes Vital Signs & Weight: Vital Signs (12 hours) Temp Pulse Ox 05/23/19 04:00 98.4 F 05/23/19 00:00 99.1 F 05/22/19 19:05 100 05/22/19 19:00 100.3 F H Weight Admit Weight 104.326 kg Weight 104.326 kg Most Recent Monitor Data Heart Rate from ECG 105 NIBP 108/58 NIBP BP-Mean 74 Respiration from ECG 24 SpO2 98 I&O: 05/21/19 05/22/19 05/23/19 06:59 06:59 06:59 Intake Total 2663 Output Total 675 Balance 1988 Result Diagrams: 05/22/19 01:50 05/23/19 08:31 Phys Exam - Physical Examination Constitutional: NAD HEENT: moist MMs Neck: supple Respiratory: no wheezing, clear to auscultation bilateral Cardiovascular: RRR, no significant murmur Gastrointestinal: soft, non-tender, positive bowel sounds Musculoskeletal: no edema, pulses present Neurological: moves all 4 limbs Psychiatric: normal affect Skin: normal turgor Dx/Plan - Plan Plan: Shock requiring pressors, likely multifactorial cardiogenic/septic - Attempt to wean pressors - Did not receive 1U pRBCs yesterday, will give this AM and check 2hr post transfusion H&H - Palliative care consulted Acute kidney injury, unknown etiology, on CKD stage 3 - Dr. Park consulted, appreciate recs - Bilateral Renal US unremarkable - Urine sodium, urine creatinine pending, pt does not make urine - Strict I/Os, continue buitrago catheter. Hold all nephrotoxic medications - Continue D5W with NaHCO3 @125 ml - Trialysis catheter placed 05/22 Sacral wound ulcer, stage 3 - Wound care Recent history of adenocarcinoma s/p colectomy, complicated by saddle embolus treated w/ anticoagulation - Currently on Heparin gtt - Continue to check PTT and adjust accordingly Normocytic anemia - Transfusing 1U pRBCs, 2hr post transfusion H&H - Continue to monitor HTN - Currently hypotensive HLD - On Crestor at home. Currently held Diabetes mellitus - ACHS accuchecks. Hypoglycemic protocol - Hold metformin, SSI. Dispo: OT recommends Rehab Code: DNR Diet: Renal low protein, carb consistent VTE PPx: Ther. heparin for saddle embolus GI PPx: Protonix
[2019-05-23] MEDS: Norepinephrine 8 MG in Dextrose 5% in Water 242 ML IVPB SCH ×2 (06:31→20:11)
[2019-05-23] MEDS: HumaLOG 300 UNITS/3 ML VIAL SC PRN (06:36)
[2019-05-23 08:59] LABS: ALT (SGPT) 27 U/L (8-55); AST (SGOT) 48 U/L (5-34); Albumin 1.9 g/dL (3.4-4.8); Alkaline Phosphatase 120 U/L (40-110); Anion Gap 18 mmol/L (10-20); BUN (Urea Nitrogen) 36 mg/dL (8.4-25.7); Bilirubin, Total 0.5 mg/dL (0.2-1.2); Calc. Creatinine Clearance 11 mL/min (70-130); Calcium 7.3 mg/dL (7.8-10.44); Carbon Dioxide 25 mmol/L (23-31); Chloride 90 mmol/L (98-107); Estimated GFR-MDRD 6; Globulin 3.8 g/dL (2.4-3.5); Glucose 196 mg/dL (80-115); Potassium 4.3 mmol/L (3.5-5.1); Protein, Total 5.7 g/dL (5.8-8.1); Sodium 129 mmol/L (136-145)
--- NOTE | 2019-05-23 09:50 | PRG ---
DATE OF SERVICE: 05/23/2019 SUBJECTIVE: This patient was readmitted over the weekend after he had been discharged. He was brought to the CCU. He has been placed on Levophed because of hypotension. He has also developed acute renal failure. He had a saddle pulmonary embolism diagnosed last week and had been taking Xarelto for that, now is on heparin drip. He is fairly quiet, does not appear to be in any distress at this time. OBJECTIVE: VITAL SIGNS: Temperature is 98.2, pulse 114, blood pressure 112/62. He is currently on Levophed 10 mcg/minute. Total intake for the last 24 hours is 4859, output 875 most that to his ileostomy. No urine output. HEENT: Unremarkable. NECK: No JVD. LUNGS: Clear anteriorly. CARDIAC: S1, S2. Tachycardic. ABDOMEN: Somewhat distended. EXTREMITIES: No edema. LABORATORY DATA: Sodium 132, potassium 4.7, chloride 103, CO2 of 16, BUN 33, creatinine 8.1, glucose 113, lactate is 1.3, and BNP was 514. PTT is 103. ASSESSMENT: 1. Hypotension - not clear if this is related to volume or perhaps his cardiac status. 2. Recent pulmonary embolism. 3. Colon cancer. 4. Acute renal failure. PLAN: 1. Check CVP. 2. If CVP low, then he may need some volume. 3. Wean Levophed as tolerated. 4. Continue heparin drip. Job ID: [id number]
--- NOTE | 2019-05-23 10:23 | PRG ---
DATE OF SERVICE: 05/23/2019 Mr. Deleon is sitting in bed, but appears tired and fatigued. He, however, is in no acute distress. He is having no shortness of breath. He is still on the Levophed infusion. We are recommending rehab. He is maintained in a DNR status. We will continue to follow with the intensive care team and appreciate the input from the General Surgery Service. Job ID: [id number]
[2019-05-23 11:39] LABS: #Eosinphils 0.3 thou/uL (0.0-0.7); #Lymphocytes 1.3 thou/uL (1.20-3.40); #Monocytes 0.8 thou/uL (0.11-0.59); #Neutrophils 10.8 thou/uL (1.40-6.50); %Basophils 0.1 % (0.0-1.0); %Eosinophils 2.4 % (0.0-10.0); %Lymphocytes 9.7 % (21.0-51.0); %Neutrophils 81.7 % (42.0-75.0); Hemoglobin 8.4 g/dL (14.0-18.0); Mean Corpuscular HGB CONC 31.2 g/dL (32.0-36.0); Mean Corpuscular Hemoglobin 24.2 pg (27.0-31.0); Mean Corpuscular Volume 77.7 fL (78.0-98.0); Mean Platelet Volume 8.6 fL (7.4-10.4); Platelet Count 379 thou/uL (130-400); RBC Distribution Width 18.1 % (11.5-14.5); Red Blood Cell (RBC) Count 3.47 mill/uL (4.70-6.10); White Blood Cell (WBC) Count 13.3 thou/uL (4.8-10.8)
[2019-05-23 12:11] LABS: ALT (SGPT) 27 U/L (8-55); AST (SGOT) 47 U/L (5-34); Alkaline Phosphatase 119 U/L (40-110); Anion Gap 16 mmol/L (10-20); BUN (Urea Nitrogen) 37 mg/dL (8.4-25.7); Bilirubin, Total 0.9 mg/dL (0.2-1.2); Calc. Creatinine Clearance 10 mL/min (70-130); Calcium 7.4 mg/dL (7.8-10.44); Carbon Dioxide 27 mmol/L (23-31); Chloride 90 mmol/L (98-107); Estimated GFR-MDRD 6; Globulin 3.8 g/dL (2.4-3.5); Glucose 179 mg/dL (80-115); Potassium 4.3 mmol/L (3.5-5.1); Protein, Total 5.8 g/dL (5.8-8.1); Sodium 129 mmol/L (136-145)
[2019-05-23] MEDS: Sodium Chloride 0.9% 1,000 ML IV SCH (14:00)
[2019-05-23] MEDS: Heparin 25,000 units/D5W 500 ML IVPB SCH (14:09)
--- NOTE | 2019-05-23 17:17 | PRG ---
DATE OF SERVICE: 05/23/2019 SUBJECTIVE: Patient was seen and examined at bedside and overnight events noted. Patient denies any shortness of breath or chest pain or palpitation. No history of nausea or vomiting or diarrhea or fever or chills or cramps. OBJECTIVE: GENERAL: This is an obese male, in no apparent distress. VITAL SIGNS: Temperature 98.4. Heart rate 119. Respiratory rate 23. Blood pressure 95/65. HEENT: Atraumatic, normocephalic. Oral mucosa is moist NECK: Supple. CARDIOVASCULAR: S1, S2 heard. Rate and rhythm regular. RESPIRATORY: Clear to auscultation. GASTROINTESTINAL: Abdomen is soft. MUSCULOSKELETAL: No tenderness. No edema. DERMATOLOGIC: No skin rash. NEUROLOGIC: Alert and awake and oriented X3. No focal neurologic deficits. Moving all the extremities. PSYCHIATRIC: Mood and affect normal. LABORATORY DATA: Potassium 4.3, BUN is 37, creatinine is 10.9 ASSESSMENT AND PLAN: 1. Acute kidney injury with worsening labs. No urine output. No acute indication for dialysis. 2. Hyponatremia, stable. 3. Metabolic acidosis, better with bicarb drip. We will change it to NS. 4. Hypoalbuminemia. 5. Anemia of chronic disease. 6. Edema. 7. History of hypertension. Plan to continue IV fluids. Monitor urine output. Avoid nephrotoxins. We will follow. No acute indication for dialysis. Job ID: [id number]
[2019-05-23 21:38] LABS: Platelet Count 349 thou/uL (130-400)
[2019-05-24] MEDS: Sodium Chloride 0.9% 1,000 ML IV SCH (00:25)
--- NOTE | 2019-05-24 01:03 | OP ---
DATE OF PROCEDURE: 05/22/2019 TIME OF PROCEDURE: 0300 hours. PREOPERATIVE DIAGNOSES: Acute renal failure, probably secondary to prerenal azotemia due to ileostomy output, deep venous thrombosis, metastatic colon cancer. PROCEDURE PERFORMED: Right femoral vein Trialysis catheter. ANESTHESIA: 1% Xylocaine. INDICATIONS FOR PROCEDURE: Note, I was called at 2:30 in the morning stating the patient needed a stat dialysis catheter. When I arrived, I was told he did not need this for dialysis, but for a central line. The patient has a PICC line that could be used for vasopressors. unnecessary, but as I was here, I placed the dialysis catheter. DESCRIPTION OF PROCEDURE: With the patient at bedside, right groin was clipped of hair, prepared with ChloraPrep and draped in routine fashion. 1% Xylocaine was infiltrated into the skin and subcutaneous tissue. Seldinger technique was used to place a Trialysis catheter, securing it with 3-0 nylon suture. Biopatch sterile dressing was applied. The patient tolerated the procedure well. Each port aspirated blood and flushed with heparinized saline solution. Job ID: [id number]
[2019-05-24 04:14] LABS: #Eosinphils 0.3 thou/uL (0.0-0.7); #Monocytes 0.6 thou/uL (0.11-0.59); #Neutrophils 9.2 thou/uL (1.40-6.50); %Basophils 0.2 % (0.0-1.0); %Lymphocytes 8.8 % (21.0-51.0); %Monocytes 5.5 % (0.0-10.0); %Neutrophils 82.4 % (42.0-75.0); Mean Corpuscular HGB CONC 32.3 g/dL (32.0-36.0); Mean Corpuscular Hemoglobin 24.9 pg (27.0-31.0); Mean Corpuscular Volume 77.2 fL (78.0-98.0); Mean Platelet Volume 8.4 fL (7.4-10.4); Platelet Count 341 thou/uL (130-400); RBC Distribution Width 18.2 % (11.5-14.5); Red Blood Cell (RBC) Count 3.19 mill/uL (4.70-6.10); White Blood Cell (WBC) Count 11.1 thou/uL (4.8-10.8)
[2019-05-24 04:30] LABS: Anion Gap 19 mmol/L (10-20); BUN (Urea Nitrogen) 38 mg/dL (8.4-25.7); Calc. Creatinine Clearance 9 mL/min (70-130); Calcium 7.2 mg/dL (7.8-10.44); Carbon Dioxide 26 mmol/L (23-31); Chloride 88 mmol/L (98-107); Estimated GFR-MDRD 5; Glucose 181 mg/dL (80-115); Potassium 4.3 mmol/L (3.5-5.1); Sodium 129 mmol/L (136-145)
[2019-05-24] MEDS: MEROPENEM 1 GM/50 ML 1 GM in Premix Bag 1 BAG IVPB SCH (04:56)
--- NOTE | 2019-05-24 06:22 | PDOC.FM ---
- Subjective Subjective: No overnight events. Reports he didn't sleep well. Denies pain, shortness of breath, fevers, chills. - Objective MAR Reviewed: Yes Vital Signs & Weight: Vital Signs (12 hours) Temp Pulse Ox 05/24/19 04:00 98.3 F 05/24/19 00:00 99.1 F 05/23/19 19:05 98 05/23/19 19:00 99.8 F H Weight Admit Weight 104.326 kg Weight 104.326 kg Most Recent Monitor Data Heart Rate from ECG 102 NIBP 96/59 NIBP BP-Mean 71 Respiration from ECG 21 SpO2 100 I&O: 05/22/19 05/23/19 05/24/19 06:59 06:59 06:59 Intake Total 4859 2338 Output Total 875 1700 Balance 3984 638 Result Diagrams: 05/24/19 03:50 05/24/19 03:50 Phys Exam - Physical Examination Constitutional: NAD HEENT: moist MMs Neck: supple Respiratory: no wheezing, clear to auscultation bilateral Cardiovascular: RRR Gastrointestinal: soft, non-tender Musculoskeletal: pulses present Neurological: non-focal Psychiatric: normal affect Skin: normal turgor Dx/Plan - Plan Plan: Shock requiring pressors, likely multifactorial cardiogenic/septic - Continue to attempt to wean levophed - Continue Meropenem - Received 1U pRBCs yesterday - Palliative care consulted Acute kidney injury on CKD stage 3 likely prerenal due to ileostomy output - Dr. Park consulted, appreciate recs - Bilateral Renal US unremarkable - Trialysis catheter placed 05/22 - Continue NS @75 - Remove buitrago catheter and bladder scan once per shift. Sacral wound ulcer, stage 3 - Wound care Recent history of adenocarcinoma s/p colectomy, complicated by saddle embolus - Currently on Heparin gtt, check PTT and adjust accordingly - [place] to be removed today, Dr Landin following Normocytic anemia - Transfused 1U pRBCs yesterday - Continue to monitor HTN - Currently hypotensive HLD - On Crestor at home. Currently held Diabetes mellitus - ACHS accuchecks. Hypoglycemic protocol - Hold metformin, SSI. Dispo: OT recommends Rehab Code: DNR Diet: Renal low protein, carb consistent VTE PPx: Ther. heparin for saddle embolus GI PPx: Protonix
--- NOTE | 2019-05-24 09:02 | PRG ---
DATE OF SERVICE: 05/24/2019 A 35 minutes of critical care time. SUBJECTIVE: The patient remains on low-dose of Levophed. He did not sleep well last night. OBJECTIVE: VITAL SIGNS: Temperature 98.3, pulse 89, blood pressure 110/64, and O2 saturation 100%. Currently on heparin drip and norepinephrine drip, that is set at 2.5 mcg/minute. HEENT: Unremarkable. NECK: No adenopathy or JVD. CHEST: Fairly clear anteriorly. CARDIAC: S1 and S2. Regular. ABDOMEN: Distended. EXTREMITIES: Edematous. LABORATORY DATA: Sodium 129, potassium 4.3, chloride 88, CO2 of 26, BUN 38, creatinine 12.1, and glucose 181. White blood cell count 11.1, hematocrit 24.6, and platelet count 341. ASSESSMENT: 1. Pulmonary embolism. 2. Acute renal failure. 3. Colon cancer. PLAN: 1. The patient will likely need some form of dialysis to improve his BUN and creatinine. It does not appear that he is grossly fluid overloaded at this point. 2. He is continuing heparin for anticoagulation. 3. He is continuing some normal saline at the discretion of the sander operator. Job ID: [id number]
--- NOTE | 2019-05-24 09:47 | PRG ---
DATE OF SERVICE: 05/24/2019 Mr. Deleon is resting in bed quietly. He is very somnolent, but appears to be in no acute distress and is not short of breath or experiencing any chest discomfort. He continues to require a Levophed infusion and also being followed by the assistant branch operations manager, whose input we appreciate. Dr. Servin still is indicating no acute need for dialysis. Job ID: [id number]
[2019-05-24 10:15] LABS: Iron Less than 8 ug/dL (65-175); Iron Binding Capacity, Total 146 mcg/dL (261-462)
--- NOTE | 2019-05-24 10:36 | PDOC.GSPN ---
Surgery Progress Note: Subj - Subjective Narrative: States that he doesn't feel well. No appetite. No urine output Surgery Progress Note: Obj - Vital signs Vital signs: Vital Signs - Most Recent Temp Pulse Resp BP Pulse Ox 99.0 F 116 H 24 H 105/62 99 05/24/19 08:00 05/23/19 08:40 05/23/19 08:40 05/23/19 08:40 05/24/19 08:00 - Physical Exam General: no distress Abdomen: soft, non tender, nondistended Wound: healing well Surgery Progress Note: Results - Labs Result Diagrams: 05/24/19 03:50 05/24/19 03:50 Lab results: Laboratory Results - last 24 hr 05/23/19 05/24/19 05/24/19 22:48 03:50 03:50 WBC RBC Hgb Hct MCV MCH MCHC RDW Plt Count MPV Neutrophils % Neutrophils % (Manual) Lymphocytes % Monocytes % Eosinophils % Basophils % Neutrophils # Lymphocytes # Monocytes # Eosinophils # Basophils # APTT 85.5 H Sodium 129 L Potassium 4.3 Chloride 88 L Carbon Dioxide 26 Anion Gap 19 BUN 38 H Creatinine 12.15 H Estimated GFR (MDRD) 5 Glucose 181 H POC Glucose 202 H Calcium 7.2 L Iron TIBC 05/24/19 05/24/19 05/24/19 03:50 03:54 09:48 WBC 11.1 H RBC 3.19 L Hgb 8.0 L Hct 24.6 L MCV 77.2 L MCH 24.9 L MCHC 32.3 RDW 18.2 H Plt Count 341 MPV 8.4 Neutrophils % 82.4 H Neutrophils % (Manual) Not Reportable Lymphocytes % 8.8 L Monocytes % 5.5 Eosinophils % 3.0 Basophils % 0.2 Neutrophils # 9.2 H Lymphocytes # 1.0 L Monocytes # 0.6 H Eosinophils # 0.3 Basophils # 0.0 APTT Sodium Potassium Chloride Carbon Dioxide Anion Gap BUN Creatinine Estimated GFR (MDRD) Glucose POC Glucose 190 H Calcium Iron Less than 8 L TIBC 146 L 05/24/19 09:58 WBC RBC Hgb Hct MCV MCH MCHC RDW Plt Count MPV Neutrophils % Neutrophils % (Manual) Lymphocytes % Monocytes % Eosinophils % Basophils % Neutrophils # Lymphocytes # Monocytes # Eosinophils # Basophils # APTT Sodium Potassium Chloride Carbon Dioxide Anion Gap BUN Creatinine Estimated GFR (MDRD) Glucose POC Glucose 146 H Calcium Iron TIBC Surgery Progress Note: A/P - Problem (1) Adenocarcinoma of colon Current Visit: No Code(s): C18.9 - MALIGNANT NEOPLASM OF COLON, UNSPECIFIED Status: Chronic - Plan Plan: Having ileostomy output but no appetite -cont renal diet as shadi Renal failure -no dialysis yet Failure to thrive/metastatic splenic flexure colon cancer -palliative care -will have to make substantial recovery to tolerate chemo
[2019-05-24] MEDS: Heparin 25,000 units/D5W 500 ML IVPB SCH (11:37)
--- NOTE | 2019-05-24 11:49 | PRG ---
DATE OF SERVICE: 05/24/2019 SUBJECTIVE: Patient was seen and examined at bedside and overnight events noted. Patient denies any shortness of breath or chest pain or palpitation. No history of nausea or vomiting or diarrhea or fever or chills or cramps. OBJECTIVE: GENERAL: This is an obese male, in no apparent distress. VITAL SIGNS: Temperature 98.6. Heart rate 68 Respiratory rate 28 Blood pressure 132/78. HEENT: Atraumatic, normocephalic. Oral mucosa is moist NECK: Supple. CARDIOVASCULAR: S1, S2 heard. Rate and rhythm regular. RESPIRATORY: Clear to auscultation. GASTROINTESTINAL: Abdomen is soft. MUSCULOSKELETAL: No tenderness. No edema. DERMATOLOGIC: No skin rash. NEUROLOGIC: Alert and awake and oriented X3. No focal neurologic deficits. Moving all the extremities. PSYCHIATRIC: Mood and affect normal. LABORATORY DATA: Potassium 4.3, sodium 129, BUN 38, creatinine 12.1. ASSESSMENT AND PLAN: 1. Acute kidney injury on chronic kidney disease with worsening labs. No urine output. Plan is to start on dialysis as tolerated. 2. Hyponatremia. 3. Acidosis 4. Edema 5. Hypotension Stop IV fluids and start on dialysis . Job ID: [id number] MTDD
[2019-05-24 13:12] LABS: HBSAB Concentration 2.02 mIU/mL; HBSAg Index 0.16 S/CO (0-0.99); Hep B Core Total Ab Non-Reactive (NonReactive); Hep B Core Total Index 0.09 S/CO (0-0.79); Hep B Surf AB Non-Reactive (NonReactive); Hep B Surf Ag Non-Reactive S/CO (NonReactive); Hep C IgG Ab Non-Reactive (NonReactive); Hep C Index 0.06 S/CO (0-0.79)
[2019-05-24] MEDS ORDERED: Heparin 10,000 UNITS/1 ML VIAL ONE (15:00)
[2019-05-24] MEDS: Meropenem 500 MG in Sodium Chloride 0.9% 100 ML IVPB SCH (18:20)
[2019-05-24] MEDS: Norepinephrine 8 MG in Dextrose 5% in Water 242 ML IVPB SCH (18:27)
--- NOTE | 2019-05-24 19:44 | EKG ---
Test Reason : Blood Pressure : / mmHG Vent. Rate : 126 BPM Atrial Rate : 126 BPM P-R Int : 128 ms QRS Dur : 086 ms QT Int : 294 ms P-R-T Axes : 061 024 161 degrees QTc Int : 425 ms Sinus tachycardia Inferior infarct (cited on or before 02-MAY-2019) Abnormal ECG When compared with ECG of 17-MAY-2019 10:57, Serial changes of evolving Inferior infarct Present Confirmed by MAI LANDEROS, . SKirsten (4) on 05/24/2019 7:44:23 PM Referred By: KULWINDER Confirmed By:DR. Eve ONEILL MD
--- NOTE | 2019-05-24 19:45 | EKG ---
Test Reason : STAT Blood Pressure : / mmHG Vent. Rate : 135 BPM Atrial Rate : 067 BPM P-R Int : 000 ms QRS Dur : 082 ms QT Int : 390 ms P-R-T Axes : 000 013 022 degrees QTc Int : 585 ms Supraventricular tachycardia with Premature ventricular complexes or Fusion complexes Low voltage QRS Anteroseptal infarct , age undetermined Inferior infarct (cited on or before 02-MAY-2019) Abnormal ECG When compared with ECG of 21-MAY-2019 22:28, (Unconfirmed) Fusion complexes are now Present Premature ventricular complexes are now Present Septal infarct is now Present T wave inversion now evident in Anterior leads Confirmed by MAI LANDEROS, DR. Prado (4) on 05/24/2019 7:45:41 PM Referred By: Confirmed By:DR. Eve ONEILL MD
[2019-05-25 04:15] LABS: #Eosinphils 0.4 thou/uL (0.0-0.7); #Lymphocytes 0.9 thou/uL (1.20-3.40); #Monocytes 0.6 thou/uL (0.11-0.59); #Neutrophils 6.3 thou/uL (1.40-6.50); %Basophils 0.1 % (0.0-1.0); %Eosinophils 5.3 % (0.0-10.0); %Lymphocytes 10.5 % (21.0-51.0); %Monocytes 7.7 % (0.0-10.0); %Neutrophils 76.5 % (42.0-75.0); Hemoglobin 7.5 g/dL (14.0-18.0); Mean Corpuscular HGB CONC 31.9 g/dL (32.0-36.0); Mean Corpuscular Hemoglobin 24.7 pg (27.0-31.0); Mean Corpuscular Volume 77.6 fL (78.0-98.0); Mean Platelet Volume 8.3 fL (7.4-10.4); Platelet Count 317 thou/uL (130-400); RBC Distribution Width 18.2 % (11.5-14.5); Red Blood Cell (RBC) Count 3.02 mill/uL (4.70-6.10); White Blood Cell (WBC) Count 8.2 thou/uL (4.8-10.8)
[2019-05-25 04:32] LABS: Anion Gap 17 mmol/L (10-20); BUN (Urea Nitrogen) 35 mg/dL (8.4-25.7); Calc. Creatinine Clearance 9 mL/min (70-130); Calcium 7.4 mg/dL (7.8-10.44); Carbon Dioxide 26 mmol/L (23-31); Chloride 92 mmol/L (98-107); Estimated GFR-MDRD 5; Glucose 120 mg/dL (80-115); Potassium 4.4 mmol/L (3.5-5.1); Sodium 131 mmol/L (136-145)
[2019-05-25] MEDS: Heparin 25,000 units/D5W 500 ML IVPB SCH (06:12)
--- NOTE | 2019-05-25 06:29 | PDOC.FM ---
- Subjective Subjective: No overnight events. Slept well. Denies pain. Received dialysis yesterday. Plan is to have dialysis again today. - Objective MAR Reviewed: Yes Vital Signs & Weight: Vital Signs (12 hours) Temp Pulse Ox 05/25/19 04:00 99.4 F 05/24/19 23:00 99.4 F 05/24/19 20:00 98.4 F 05/24/19 19:28 100 Weight Admit Weight 104.326 kg Weight 104.326 kg Most Recent Monitor Data Heart Rate from ECG 88 NIBP 117/57 NIBP BP-Mean 77 Respiration from ECG 16 SpO2 100 I&O: 05/23/19 05/24/19 05/25/19 06:59 06:59 06:59 Intake Total 4859 3876 1656.5 Output Total 875 1700 100 Balance 3984 2176 1556.5 Result Diagrams: 05/25/19 04:00 05/25/19 04:00 Phys Exam - Physical Examination Constitutional: NAD HEENT: moist MMs Neck: supple Respiratory: no wheezing, clear to auscultation bilateral Cardiovascular: RRR Gastrointestinal: soft, non-tender Ileostomy. Richard removed incision healing well Musculoskeletal: no edema, pulses present Neurological: moves all 4 limbs Psychiatric: normal affect Skin: normal turgor Dx/Plan - Plan Plan: Shock requiring pressors, likely multifactorial cardiogenic/septic - Continue to wean levophed - Continue Meropenem - Palliative care consulted Acute kidney injury on CKD stage 3 likely prerenal due to ileostomy output - Dr. Park consulted, appreciate recs - Bilateral Renal US unremarkable - Trialysis catheter placed 05/22 - Continue NS @75 - Continue dialysis Sacral wound ulcer, stage 3 - Wound care Recent history of adenocarcinoma s/p colectomy, complicated by saddle embolus - Currently on Heparin gtt, check PTT and adjust accordingly Normocytic anemia - Continue to monitor Hx of chronic HTN - Currently hypotensive Diabetes mellitus - ACHS accuchecks. Hypoglycemic protocol - Hold metformin, SSI. Dispo: OT recommends Rehab Code: DNR Diet: Renal low protein, carb consistent VTE PPx: Ther. heparin for saddle embolus GI PPx: Protonix
[2019-05-25] MEDS ORDERED: EPOETIN ALFA-EPBX (ESRD) 10,000 UNIT/ML VIAL IVP SCH (09:00)
--- NOTE | 2019-05-25 09:32 | PRG ---
DATE OF SERVICE: 05/25/2019 SUBJECTIVE: He seems very depressed. He has no complaints of shortness of breath. He is still needing Levophed drip, right now he is running at 3 mcg/minute. He also continues on heparin drip. OBJECTIVE: VITAL SIGNS: On exam, temperature is 98.4, pulse 92, blood pressure 127/72, respiratory rate 18. HEENT: Unremarkable. NECK: No JVD. LUNGS: Clear anteriorly. CARDIAC: S1 and S2. Regular. ABDOMEN: Soft and nontender. He has stool in his colostomy bag. EXTREMITIES: He has a right femoral dialysis catheter. LABORATORY DATA: Sodium 131, potassium 4.4, BUN 35, creatinine 12, glucose 120. White blood cell count 8.2, hematocrit 23.4, and platelet count 317. ASSESSMENT: 1. Metastatic colon cancer. 2. Pulmonary embolism. 3. Acute renal failure. PLAN: He is continuing anticoagulation with heparin. He is continuing hemodialysis. He can be transferred to the floor, if he is able to wean off the Levophed drip. His prognosis is quite poor. Job ID: [id number]
--- NOTE | 2019-05-25 10:52 | PRG ---
DATE OF SERVICE: 05/25/2019 Mr. Deleon is resting quietly in bed, in no distress. He is still on his heparin for pulmonary embolus as well as receiving hemodialysis. As soon as his Levophed is discontinued, he will be transferred to the floor and his prognosis remains very poor. Job ID: [id number]
--- NOTE | 2019-05-25 13:25 | PQF ---
CLINICAL DOCUMENTATION IMPROVEMENT CLARIFICATION FORM: ICD-10 Updated PLEASE DO AN ADDENDUM TO THE PROGRESS NOTE WITH ANY DOCUMENTATION UPDATES OR ADDITIONS AND CARRY THROUGH TO DC SUMMARY. THANK YOU. DATE: 05/25/2019; 05/26/2019 ATTN: Dr. Hanson/ Attending Dr. Mora 05/29/2019 Dr. Matson/ Attending Dr. Portillo Please exercise your independent, professional judgment in responding to the clarification form. Clinical indicators are provided on the bottom of this form for your review Please check appropriate box(s): [X ] I (concur) with the Wound Care findings as stated below. [ ] Pressure Ulcer: (Stage I: Erythema; Stage II: Partial thickness; Stage III : Full thickness; Stage IV: Necrosis to muscle/bone) [ ] Location: Stage (I to IV): ____(Left__Right__Bilateral__N/A__) [ ] Location: Stage (I to IV): ____(Left__Right__Bilateral__N/A__) [ ] No pressure ulcer diagnosis [ ] Other diagnosis [ ] Unable to determine In addition, please specify: Present on Admission (POA): [ ] Yes [ ] No [ ] Unable to determine For continuity of documentation, please document condition throughout progress notes and discharge summary. Thank You. CLINICAL INDICATORS - SIGNS / SYMPTOMS / LABS H&P 05/21: Sacral wound ulcer, stage 3 Wound Care Assessment: 05/22: Sacral Pressure Ulcer . Stage III RISKS: H&P 05/21: Recent hospitalization for colectomy, adenocarcinoma of colon, and saddle embolus. Chronic conditions: HTN, DM TREATMENT: Order 05/21: Wound Care Eval/Treat. WC Assess 05/22: Specialty Bed Low Air Loss Mattress Pre-ulcer skin changes limited to persistent focal edema (Stage 1) Abrasion, blister, partial thickness skin loss involving epidermis and/or dermis (Stage 2) Full thickness skin loss involving damage or necrosis of SQ tissue. (Stage 3) Necrosis of soft tissue through to underlying muscle, tendon, or bone. (Stage 4) Purple or maroon discolored skin or blood filled blister Thank you, Dorothy (This form is maintained as a part of the permanent medical record) 2015 [employer] All Rights Reserved Dorothy Hatfield RN, BSN [email or web address] Office: [phone] [facility] HOSPITALRashawn
[2019-05-25] MEDS ORDERED: Heparin 10,000 UNITS/1 ML VIAL ONE ×2 (15:00)
--- NOTE | 2019-05-25 15:14 | PRG ---
DATE OF SERVICE: 05/25/2019 SUBJECTIVE: Patient was seen and examined at bedside and overnight events noted. Patient denies any shortness of breath or chest pain or palpitation. No history of nausea or vomiting or diarrhea or fever or chills or cramps. OBJECTIVE: GENERAL: This is a well-built male, in no apparent distress. VITAL SIGNS: Temperature 98.5. Heart rate 102. Respiratory rate 23. Blood pressure 106/68. HEENT: Atraumatic, normocephalic. Oral mucosa is moist NECK: Supple. CARDIOVASCULAR: S1, S2 heard. Rate and rhythm regular. RESPIRATORY: Clear to auscultation. GASTROINTESTINAL: Abdomen is soft. MUSCULOSKELETAL: No tenderness. No edema. DERMATOLOGIC: No skin rash. NEUROLOGIC: Alert and awake and oriented X3. No focal neurologic deficits. Moving all the extremities. PSYCHIATRIC: Mood and affect normal. LABORATORY DATA: Potassium 4.4, BUN is 35, and creatinine is 12.05. ASSESSMENT AND PLAN: 1. Acute kidney injury on chronic kidney disease, worsening labs. Plan is to start dialysis. The patient is on dialysis as tolerated. 2. Hyponatremia. 3. Edema. 4. Acidosis. 5. Anuric kidney injury. 6. Anemia. 7. Obesity. Plan to continue on dialysis as tolerated. Job ID: [id number]
[2019-05-25] MEDS: Meropenem 500 MG in Sodium Chloride 0.9% 100 ML IVPB SCH (17:13)
[2019-05-25 22:28] LABS: Hemoglobin 7.6 g/dL (14.0-18.0); Platelet Count 251 thou/uL (130-400)
[2019-05-26] MEDS: Heparin 25,000 units/D5W 500 ML IVPB SCH (04:19)
[2019-05-26] MEDS: Norepinephrine 8 MG in Dextrose 5% in Water 242 ML IVPB SCH (04:19)
[2019-05-26 04:59] LABS: #Eosinphils 0.3 thou/uL (0.0-0.7); #Monocytes 0.6 thou/uL (0.11-0.59); %Basophils 0.3 % (0.0-1.0); %Eosinophils 4.8 % (0.0-10.0); %Monocytes 8.2 % (0.0-10.0); %Neutrophils 71.8 % (42.0-75.0); Hemoglobin 7.3 g/dL (14.0-18.0); Mean Corpuscular HGB CONC 30.7 g/dL (32.0-36.0); Mean Corpuscular Hemoglobin 24.5 pg (27.0-31.0); Mean Corpuscular Volume 79.8 fL (78.0-98.0); Platelet Count 252 thou/uL (130-400); RBC Distribution Width 17.9 % (11.5-14.5); Red Blood Cell (RBC) Count 2.96 mill/uL (4.70-6.10); White Blood Cell (WBC) Count 6.9 thou/uL (4.8-10.8)
[2019-05-26 05:17] LABS: Anion Gap 15 mmol/L (10-20); BUN (Urea Nitrogen) 26 mg/dL (8.4-25.7); Calc. Creatinine Clearance 11 mL/min (70-130); Calcium 7.4 mg/dL (7.8-10.44); Carbon Dioxide 26 mmol/L (23-31); Chloride 95 mmol/L (98-107); Estimated GFR-MDRD 7; Glucose 136 mg/dL (80-115); Potassium 4.1 mmol/L (3.5-5.1); Sodium 132 mmol/L (136-145)
--- NOTE | 2019-05-26 06:13 | PDOC.FM ---
- Subjective Subjective: No overnight events. Nursing reports increased output from ileostomy. Pt has decided he would like to pursue outpt dialysis but does not want a fistula for correction dialysis. He is currently NPO. Denies pain. - Objective MAR Reviewed: Yes Vital Signs & Weight: Vital Signs (12 hours) Temp Pulse Ox 05/26/19 04:00 98.4 F 05/25/19 23:00 98.9 F 05/25/19 20:00 100 05/25/19 19:00 98.4 F Weight Admit Weight 104.326 kg Weight 104.326 kg Most Recent Monitor Data Heart Rate from ECG 90 NIBP 111/52 NIBP BP-Mean 71 Respiration from ECG 13 SpO2 100 I&O: 05/24/19 05/25/19 05/26/19 06:59 06:59 06:59 Intake Total 3876 1656.5 1191 Output Total 8851 065 6166 Balance 2176 1556.5 41 Result Diagrams: 05/26/19 04:45 05/26/19 03:30 Phys Exam - Physical Examination Constitutional: NAD HEENT: moist MMs Neck: supple Respiratory: no wheezing, clear to auscultation bilateral Cardiovascular: RRR Gastrointestinal: soft, non-tender Ileostomy and well healing incision intact Musculoskeletal: no edema Neurological: moves all 4 limbs Psychiatric: normal affect, A&O x 3 Skin: normal turgor Dx/Plan - Plan Plan: Shock requiring pressors, likely multifactorial - Continue to wean levophed, consider transitioning to PO Milridone - Discontinue Meropenem - Will start steroids - Palliative care consulted Acute kidney injury on CKD stage 3 likely prerenal due to ileostomy output - Dr. Park consulted, appreciate recs - Bilateral Renal US unremarkable - Trialysis catheter placed 05/22. NPO for tunnel cath today by Dr Salguero. - Continue NS @75 - Continue dialysis Sacral wound ulcer, stage 3 - Wound care Recent history of adenocarcinoma s/p colectomy, complicated by saddle embolus - Currently on Heparin gtt, check PTT and adjust accordingly Normocytic anemia - Continue to monitor Hx of chronic HTN - Currently hypotensive Diabetes mellitus - ACHS accuchecks. Hypoglycemic protocol - Hold metformin, SSI. Dispo: OT recommends Rehab Code: DNR Diet: Renal low protein, carb consistent VTE PPx: Ther. heparin for saddle embolus GI PPx: Protonix
[2019-05-26] MEDS ORDERED: Hydrocortisone Sod Succ/PF 50 MG in Sodium Chloride 0.9% 50 ML IVPB SCH (06:30)
--- NOTE | 2019-05-26 08:49 | PRG ---
DATE OF SERVICE: 05/26/2019 SUBJECTIVE: Mr. Deleon is very depressed. He feels like he is not getting any better. OBJECTIVE: VITAL SIGNS: Temperature 98.4, pulse 90, blood pressure 111/52, O2 saturation 100%. He remains on a Levophed drip at 3 mcg/minute. He is also on heparin drip. HEENT: Unremarkable. NECK: Without adenopathy or JVD. CHEST: Fairly clear anteriorly. CARDIOVASCULAR: S1 and S2. Regular. ABDOMEN: Soft. Colostomy functioning. EXTREMITIES: Trace edema. LABORATORY DATA: White blood cell count 6.9, hematocrit 23.6, and platelet count 252, PTT is 80.6. Sodium 132, potassium 4.1, BUN 26, creatinine 9.9, glucose 136. ASSESSMENT: 1. Colon cancer with lymph refugio involvement. 2. Acute renal failure. 3. Pulmonary embolism. PLAN: 1. Continuing anticoagulation. At some point, he will need to be started on warfarin. 2. Continue dialysis. 3. Hopefully, transition out of the ICU this weekend, if we can wean him off the Levophed. Job ID: [id number]
[2019-05-26] MEDS ORDERED: CEFAZOLIN 2 GM in Premix Bag 1 BAG IVPB SCH (10:45)
--- NOTE | 2019-05-26 10:47 | PRG ---
DATE OF SERVICE: 05/26/2019 Mr. Pritesh Deleon is resting in bed quietly. He does want to proceed with dialysis. Surgery is being consulted to establish an access site. He could be moved out of ICU as soon as we wean him off the Levophed infusion, which is still at a low dose. Job ID: [id number]
--- NOTE | 2019-05-26 11:45 | HP ---
HISTORY OF PRESENT ILLNESS: Falguni Deleon is a 64-year-old male with acute renal failure with a diverting protective ileostomy placed on 05/04/[address] Landin after subtotal colectomy with end ileostomy, mobilization of splenic flexure due to splenic flexure obstructing colon tumor. The patient was admitted with a saddle embolus, acute renal failure requiring mechanical ventilation, anticoagulation, and pressors. He suffered acute renal failure and hemodialysis catheter had to be placed, groin Trialysis catheter present. I have been asked to see him regarding placement of a cuffed tunneled dialysis catheter and a central line will plan that today. HOME MEDICATIONS: 1. Lovenox. 2. Tylenol. 3. Protonix. 4. Zofran. 5. Lisinopril. 6. Metformin. 7. Flomax. 8. Crestor. 9. Insulin. ALLERGIES: NONE. SOCIAL HISTORY: Tobacco and alcohol, none. PAST SURGICAL HISTORY: Subtotal colectomy, end ileostomy for obstructing colon cancer. PAST MEDICAL HISTORY: Metastatic colon cancer, palliative diverting ileostomy, saddle embolus, hypertension, anemia, acute renal failure, essentially aneuric. PHYSICAL EXAMINATION: GENERAL: The patient is awake and alert. VITAL SIGNS: Low-dose pressors held in place, have been used for dialysis, although his pressure is normal at this time. 6 feet, 230 pounds, 31 BMI. LUNGS: Clear to auscultation. CARDIAC: Regular rate and rhythm without murmur or gallop. ABDOMEN: Soft and nontender. Ileostomy in place. EXTREMITIES: Unremarkable. ASSESSMENT: Medical problems as noted above. PLAN: Placement of a hemodialysis catheter and central line today. Sedation local. Risks and benefits explained. He consents. Job ID: [id number]
[2019-05-26] MEDS: Hydrocortisone Sod Succ/PF 50 MG in Sodium Chloride 0.9% 50 ML IVPB SCH ×3 (12:00→23:28)
[2019-05-26] MEDS ORDERED: Lidocaine 2% PF 5 ML VIAL ONE (12:39)
[2019-05-26] MEDS ORDERED: Bupivacaine HCl 0.5%/Epinephrine 1:200,000/PF 30 ml Vial ONE (12:39)
[2019-05-26] MEDS ORDERED: Sodium Chloride 0.9% 10 ML ONE (12:39)
[2019-05-26] MEDS ORDERED: Heparin 10,000 UNITS/1 ML VIAL ONE (12:39)
[2019-05-26] MEDS ORDERED: Ketamine 50 MG/ML (10ML VIAL) ONE (12:44)
[2019-05-26] MEDS ORDERED: Midazolam HCl 2 mg/2 ml Vial ONE (12:56)
--- NOTE | 2019-05-26 15:34 | RAD ---
Exam: Chest one view HISTORY:Central line evaluation Comparison: 05/22/2019 FINDINGS: Lungs: There is bilateral parenchymal opacification which involves the mid to lower right lung, and t he left lung base. Cardiac silhouette:Enlarged cardiac silhouette and mediastinal silhouette. There is a right-sided elio neled vascular catheter with tip overlying SVC. Pulmonary vessels: Central vascular engorgement. Pleural Spaces: There is bilateral pleural fluid, right greater than left. Pneumothorax: None Extrinsic artifacts limit visualization. Osseous abnormalities: None of acuity. IMPRESSION: Bibasilar parenchymal opacities as well as bilateral pleural fluid. Right-sided tunneled vascular catheter. No postprocedural pneumothorax visualized. Enlarged cardiac silhouette and pulmonary vascular congestion.
--- NOTE | 2019-05-26 16:31 | PRG ---
DATE OF SERVICE: 05/26/2019 SUBJECTIVE: Patient was seen and examined at bedside and overnight events noted. Patient denies any shortness of breath or chest pain or palpitation. No history of nausea or vomiting or diarrhea or fever or chills or cramps. OBJECTIVE: GENERAL: This is a well-built male, in no apparent distress. VITAL SIGNS: Temperature 97.8. Heart rate 90. Respiratory rate 18. Blood pressure 105/66. HEENT: Atraumatic, normocephalic. Oral mucosa is moist NECK: Supple. CARDIOVASCULAR: S1, S2 heard. Rate and rhythm regular. RESPIRATORY: Clear to auscultation. GASTROINTESTINAL: Abdomen is soft. MUSCULOSKELETAL: No tenderness. No edema. DERMATOLOGIC: No skin rash. NEUROLOGIC: Alert and awake and oriented X3. No focal neurologic deficits. Moving all the extremities. PSYCHIATRIC: Mood and affect normal. LABORATORY DATA: Potassium is 4.1, BUN is 26, creatinine is 9.9. ASSESSMENT AND PLAN: 1. Acute kidney injury on chronic kidney disease stage 3, dialysis dependent. Plan is to continue dialysis. No dialysis today. We will monitor and have dialysis as needed. Most likely may need dialysis tomorrow. 2. Hyponatremia, limit fluid. 3. Edema, remove fluid dialysis as tolerated. 4. Acidosis. 5. Anemia. 6. Obesity. Plan to have dialysis as tolerated. No dialysis today. We will monitor. We will check labs in the morning on the site. Job ID: [id number]
--- NOTE | 2019-05-26 18:05 | OP ---
DATE OF PROCEDURE: 05/26/2019 PREOPERATIVE DIAGNOSES: Acute renal failure, metastatic colon cancer, poor IV access, saddle embolus, pulmonary embolus, on heparin drip. POSTOPERATIVE DIAGNOSES: Acute renal failure, metastatic colon cancer, poor IV access, saddle embolus, pulmonary embolus, on heparin drip. PROCEDURES PERFORMED: Right internal jugular cuffed tunneled hemodialysis catheter; left internal jugular central line, triple lumen; fluoroscopy used; ultrasound used. ANESTHESIA: Intravenous sedation, local of 0.5% Marcaine with epinephrine 30 mL mixed with 2% Xylocaine 10 mL. DESCRIPTION OF PROCEDURE: The patient was taken to the operating room, where under intravenous sedation, neck and chest were prepared with ChloraPrep and draped in routine fashion. Local anesthetic was infiltrated in the skin and subcutaneous tissue about the operative site. Using ultrasound guidance, the right and left internal jugular veins were cannulated with trocar catheter. J-wire was threaded. Trocar catheter was removed. Skin incision site was enlarged sharply on both sides at the J-wire entrance site. Stab incision was made over the right chest. Using Seldinger technique, a triple-lumen catheter was placed in the left internal jugular vein and secured with 3-0 nylon suture removing the J-wire, aspirating each port with blood, and flushing with saline solution. Sterile dressing was applied. On the right side, the pre-curved [employer] cuffed tunneled hemodialysis catheter was tunneled between 2 incisions and placed the fabric cuff beneath the skin exit site. Catheter was secured with 2 sutures of 3-0 nylon. Sterile dressing was applied. Small and medium-sized dilators were placed over the J-wire into the internal jugular vein and removed. Dilator and Peel-Away sheath were placed over the J-wire into the superior vena cava, and dilator and J-wire were removed. Catheter was placed over the Peel-Away sheath. Peel-Away sheath was removed. Fluoroscopically, catheter was noted to be in good position as each port of the hemodialysis catheter aspirated with blood and flushed with saline solution and heparinized saline solution, 1000 units heparin per mL indicating the volume of the port. Platysma was approximated with 4-0 Monocryl, skin with subdermal 4-0 Monocryl, and Jolly glue was applied. Job ID: [id number]
[2019-05-26] MEDS: HumaLOG 300 UNITS/3 ML VIAL SC PRN (21:39)
[2019-05-27] MEDS: HumaLOG 300 UNITS/3 ML VIAL SC PRN ×3 (06:07→19:19)
[2019-05-27] MEDS: Heparin 25,000 units/D5W 500 ML IVPB SCH (06:08)
[2019-05-27 06:09] LABS: #Lymphocytes 0.7 thou/uL (1.20-3.40); #Monocytes 0.2 thou/uL (0.11-0.59); #Neutrophils 7.2 thou/uL (1.40-6.50); %Basophils 0.6 % (0.0-1.0); %Eosinophils 0.1 % (0.0-10.0); %Lymphocytes 9.1 % (21.0-51.0); %Monocytes 2.8 % (0.0-10.0); %Neutrophils 87.5 % (42.0-75.0); Hemoglobin 7.9 g/dL (14.0-18.0); Mean Corpuscular HGB CONC 30.8 g/dL (32.0-36.0); Mean Corpuscular Hemoglobin 24.5 pg (27.0-31.0); Mean Corpuscular Volume 79.5 fL (78.0-98.0); Platelet Count 268 thou/uL (130-400); RBC Distribution Width 18.1 % (11.5-14.5); Red Blood Cell (RBC) Count 3.21 mill/uL (4.70-6.10); White Blood Cell (WBC) Count 8.2 thou/uL (4.8-10.8)
[2019-05-27] MEDS: Hydrocortisone Sod Succ/PF 50 MG in Sodium Chloride 0.9% 50 ML IVPB SCH ×3 (06:09→19:19)
--- NOTE | 2019-05-27 06:13 | PDOC.FM ---
- Subjective Subjective: No overnight events. Feeling well. Sitting up in his chair this AM. Has been off levophed since yesterday at 1000. Reports supplement shakes tastes good and he is tolerating them well. - Objective MAR Reviewed: Yes Vital Signs & Weight: Vital Signs (12 hours) Temp Pulse Ox 05/27/19 00:00 98.2 F 05/26/19 20:00 97.9 F 100 Weight Admit Weight 104.326 kg Weight 104.326 kg Most Recent Monitor Data Heart Rate from ECG 104 NIBP 100/63 NIBP BP-Mean 75 Respiration from ECG 18 SpO2 97 I&O: 05/25/19 05/26/19 05/27/19 06:59 06:59 06:59 Intake Total 1656.5 1191 1229.6 Output Total 100 1150 50 Balance 1556.5 41 1179.6 Result Diagrams: 05/27/19 05:57 05/27/19 05:57 Phys Exam - Physical Examination Constitutional: NAD HEENT: moist MMs Neck: supple Respiratory: no wheezing, clear to auscultation bilateral Cardiovascular: RRR, no significant murmur Gastrointestinal: soft, non-tender Musculoskeletal: no edema, pulses present Neurological: moves all 4 limbs Psychiatric: normal affect, A&O x 3 Skin: normal turgor Dx/Plan - Plan Plan: Shock requiring pressors, likely multifactorial. Resolved. - Has been off levophed for 24hrs now. Will transfer to [facility] - Continue steroids - Palliative care consulted Acute kidney injury on CKD stage 3 likely prerenal due to ileostomy output - Dr. Park consulted, appreciate recs - Bilateral Renal US unremarkable - Trialysis catheter placed 05/22. Tunnel cath placed 05/[address] Salguero. - Continue NS @75 - Continue dialysis Sacral wound ulcer, stage 3 - Wound care Recent history of adenocarcinoma s/p colectomy, complicated by saddle embolus - Currently on Heparin gtt, check PTT and adjust accordingly - Will start Warfarin and d/c heparin once therapeutic. Normocytic anemia - Continue to monitor Hx of chronic HTN - Currently hypotensive Diabetes mellitus - ACHS accuchecks. Hypoglycemic protocol - Hold metformin, SSI. Dispo: OT recommends Rehab Code: DNR Diet: Renal low protein, carb consistent VTE PPx: Ther. heparin for saddle embolus GI PPx: Protonix Addendum - Attending - Attending Attestation Date/Time: 05/27/19 1148 I personally evaluated the patient and discussed the management with Dr. Hanson. I agree with the History, Examination, Assessment and Plan documented above with any addition or exceptions noted below. Pt is now off pressors. Will transfer to [facility]. Continue heparain, will begin warfarin titration. Dialysis today.
[2019-05-27 06:23] LABS: Anion Gap 19 mmol/L (10-20); BUN (Urea Nitrogen) 37 mg/dL (8.4-25.7); Calc. Creatinine Clearance 10 mL/min (70-130); Calcium 7.7 mg/dL (7.8-10.44); Carbon Dioxide 23 mmol/L (23-31); Chloride 95 mmol/L (98-107); Estimated GFR-MDRD 5; Glucose 218 mg/dL (80-115); Potassium 4.9 mmol/L (3.5-5.1); Sodium 132 mmol/L (136-145)
[2019-05-27] MEDS ORDERED: Warfarin Sodium 10 MG TAB PO SCH (10:00)
[2019-05-27 10:05] LABS: INR-International Normal Ratio 1.2; Prothrombin Time 14.7 SEC (12.0-14.7)
--- NOTE | 2019-05-27 10:50 | PRG ---
DATE OF SERVICE: 05/27/2019 SUBJECTIVE: Patient was seen and examined at bedside and overnight events noted. Patient denies any shortness of breath or chest pain or palpitation. No history of nausea or vomiting or diarrhea or fever or chills or cramps. OBJECTIVE: GENERAL: This is a well built male, in no acute distress. VITAL SIGNS: Temperature 98.4. Heart rate 103. Respiratory rate 18. Blood pressure 91/53. HEENT: Atraumatic, normocephalic. Oral mucosa is moist NECK: Supple. CARDIOVASCULAR: S1, S2 heard. Rate and rhythm regular. RESPIRATORY: Clear to auscultation. GASTROINTESTINAL: Abdomen is soft. MUSCULOSKELETAL: No tenderness. No edema. DERMATOLOGIC: No skin rash. NEUROLOGIC: Alert and awake and oriented X3. No focal neurologic deficits. Moving all the extremities. PSYCHIATRIC: Mood and affect normal. LABORATORY DATA: Potassium 4.9, BUN is 37, and creatinine is 11.7. ASSESSMENT AND PLAN: 1. Acute kidney injury on chronic kidney disease stage 3 with anuric kidney injury, dialysis dependent. We will have dialysis today. 2. Edema, controlled. 3. Hypertension. 4. Hyponatremia. 5. Acidosis, all stable. 6. The patient remains dialysis dependent. We will continue dialysis as tolerated. Plan is to have dialysis today. We will continue dialysis as needed and tolerated. Job ID: [id number]
[2019-05-27] MEDS ORDERED: Heparin 1,000 UNITS/ML VIAL ONE (11:11)
[2019-05-27] MEDS: Albumin 25% 25 GM/100 ML BOT IVPB SCH ×2 (15:11→17:06)
--- NOTE | 2019-05-27 20:40 | PRG ---
DATE OF SERVICE: 05/27/2019 SUBJECTIVE: Mr. Deleon had no complaints today. Soft pressors. He is taking p.o. nutrition. OBJECTIVE: VITAL SIGNS: Blood pressure 110/61 this evening, heart rate is 90, respiratory rate is in the 20s. LUNGS: Clear. HEART: Regular rhythm. ABDOMEN: Soft. LABORATORY DATA: Potassium is 4.9, creatinine is 11.7. IMPRESSION: 1. Acute on chronic kidney disease, on dialysis. 2. Hypertension. 3. Metabolic acidosis, resolved. He is scheduled for dialysis today. We will continue to follow. Job ID: [id number]
[2019-05-27 21:39] LABS: Hemoglobin 7.3 g/dL (14.0-18.0); Platelet Count 164 thou/uL (130-400)
[2019-05-28] MEDS: Hydrocortisone Sod Succ/PF 50 MG in Sodium Chloride 0.9% 50 ML IVPB SCH ×4 (00:56→17:12)
--- NOTE | 2019-05-28 06:03 | PDOC.FM ---
- Subjective Subjective: No overnight events. Feeling well. Denies chest pain, shortness of breath, f/c. - Objective MAR Reviewed: Yes Vital Signs & Weight: Vital Signs (12 hours) Temp Pulse Ox 05/28/19 03:50 97.2 F L 05/27/19 23:47 97.5 F L 05/27/19 20:00 95 Weight Admit Weight 104.326 kg Weight 114 kg Most Recent Monitor Data Heart Rate from ECG 89 NIBP 107/64 NIBP BP-Mean 78 Respiration from ECG 12 SpO2 97 I&O: 05/26/19 05/27/19 05/28/19 06:59 06:59 06:59 Intake Total 1191 1341.6 1939 Output Total 1150 50 675 Balance 41 1291.6 1264 Result Diagrams: 05/27/19 21:33 05/28/19 06:07 Phys Exam - Physical Examination Constitutional: NAD HEENT: moist MMs Neck: supple Respiratory: no wheezing, clear to auscultation bilateral Cardiovascular: RRR, no significant murmur Gastrointestinal: soft, non-tender, positive bowel sounds Musculoskeletal: no edema, pulses present Neurological: moves all 4 limbs Psychiatric: normal affect Skin: normal turgor Dx/Plan - Plan Plan: Acute kidney injury on CKD stage 3 likely prerenal due to ileostomy output - Dr. Park consulted, appreciate recs - Bilateral Renal US unremarkable - Trialysis catheter placed 05/22. Tunnel cath placed 05/[address] Salguero. - Continue NS @75 - Continue dialysis - Transfer to [facility] wound ulcer, stage 3 - Wound care Recent history of adenocarcinoma s/p colectomy, complicated by saddle embolus - Currently on Heparin gtt, check PTT and adjust accordingly - Continue Warfarin and d/c heparin once therapeutic. Normocytic anemia - Continue to monitor Hx of chronic HTN Diabetes mellitus - ACHS accuchecks. Hypoglycemic protocol - Hold metformin, SSI. Shock requiring pressors, likely multifactorial. Resolved. - Palliative care consulted Dispo: OT recommends Rehab Code: DNR Diet: Renal low protein, carb consistent VTE PPx: Ther. heparin for saddle embolus GI PPx: Protonix Addendum - Attending - Attending Attestation Date/Time: 05/28/19 3182 I personally evaluated the patient and discussed the management with Dr. Hanson. I agree with the History, Examination, Assessment and Plan documented above with any addition or exceptions noted below. Pt with saddle embolus. Continue heparin. He has started warfarin and will trend inr. Dialysis per nephrology.
[2019-05-28] MEDS: HumaLOG 300 UNITS/3 ML VIAL SC PRN ×4 (06:23→21:06)
[2019-05-28 06:32] LABS: INR-International Normal Ratio 1.2; Prothrombin Time 15.3 SEC (12.0-14.7)
[2019-05-28 06:44] LABS: Anion Gap 17 mmol/L (10-20); BUN (Urea Nitrogen) 30 mg/dL (8.4-25.7); Calc. Creatinine Clearance 15 mL/min (70-130); Calcium 7.8 mg/dL (7.8-10.44); Carbon Dioxide 26 mmol/L (23-31); Chloride 98 mmol/L (98-107); Estimated GFR-MDRD 8; Glucose 203 mg/dL (80-115); Potassium 4.5 mmol/L (3.5-5.1); Sodium 136 mmol/L (136-145)
--- NOTE | 2019-05-28 12:05 | PRG ---
DATE OF SERVICE: 05/28/2019 SUBJECTIVE: Patient was seen and examined at bedside and overnight events noted. Patient denies any shortness of breath or chest pain or palpitation. No history of nausea or vomiting or diarrhea or fever or chills or cramps. OBJECTIVE: GENERAL: This is a well built male, in no apparent distress. VITAL SIGNS: Temperature 97.0. Heart rate 99. Respiratory rate 27. Blood pressure 149/73. HEENT: Atraumatic, normocephalic. Oral mucosa is moist NECK: Supple. CARDIOVASCULAR: S1, S2 heard. Rate and rhythm regular. RESPIRATORY: Clear to auscultation. GASTROINTESTINAL: Abdomen is soft. MUSCULOSKELETAL: No tenderness. No edema. DERMATOLOGIC: No skin rash. NEUROLOGIC: Alert and awake and oriented X3. No focal neurologic deficits. Moving all the extremities. PSYCHIATRIC: Mood and affect normal. LABORATORY DATA: Potassium is 4.5, BUN is 30, creatinine is 8.4. ASSESSMENT: 1. Acute kidney injury on chronic kidney stage 3, remains dialysis dependent. 2. Edema. Remove fluid dialysis. 3. Hyponatremia. Limit fluid. 4. History of hypertension. PLAN: Continue dialysis as tolerated. The patient remains anuric. Job ID: [id number]
[2019-05-28] MEDS: Warfarin Sodium 5 MG TAB PO SCH (17:11)
[2019-05-28] MEDS ORDERED: Sodium Chloride 0.9% 250 ML IV SCH ×4 (17:30→19:00)
--- NOTE | 2019-05-28 18:13 | PRG ---
DATE OF SERVICE: 05/28/2019 SUBJECTIVE: Pritesh Deleon continues to be stable. He has no complaints. He denies shortness of breath. OBJECTIVE: VITAL SIGNS: Afebrile, blood pressure 107/64, heart rate is in the 80s, respiratory rate is 19, and oximetry is 97%. LUNGS: Clear. HEART: Regular rhythm. ABDOMEN: Soft. IMPRESSION: 1. Metastatic colon cancer. 2. Renal failure. 3. Pulmonary embolism. PLAN: Continue supportive care. Job ID: [id number]
[2019-05-28 18:14] LABS: INR-International Normal Ratio 1.4; PTT 44.2 SEC (22.9-36.1); Prothrombin Time 16.8 SEC (12.0-14.7)
[2019-05-28] MEDS: Heparin 10,000 UNITS/ 10 ML VIAL SLOW IVP SCH (19:32)
[2019-05-28] MEDS: Heparin 25,000 units/D5W 500 ML IVPB SCH (19:32)
[2019-05-29] MEDS: Hydrocortisone Sod Succ/PF 50 MG in Sodium Chloride 0.9% 50 ML IVPB SCH ×2 (00:46→05:52)
[2019-05-29 02:42] LABS: PTT Greater than 250.0 SEC (22.9-36.1)
[2019-05-29 05:08] LABS: Hemoglobin 6.9 g/dL (14.0-18.0); Platelet Count 215 thou/uL (130-400)
[2019-05-29 05:31] LABS: Anion Gap 17 mmol/L (10-20); BUN (Urea Nitrogen) 46 mg/dL (8.4-25.7); Calc. Creatinine Clearance 12 mL/min (70-130); Calcium 7.4 mg/dL (7.8-10.44); Carbon Dioxide 24 mmol/L (23-31); Chloride 97 mmol/L (98-107); Estimated GFR-MDRD 6; Glucose 213 mg/dL (80-115); Potassium 4.4 mmol/L (3.5-5.1); Sodium 134 mmol/L (136-145)
[2019-05-29] MEDS: HumaLOG 300 UNITS/3 ML VIAL SC PRN (05:52)
--- NOTE | 2019-05-29 07:09 | PDOC.FM ---
- Subjective Subjective: NAEO. Patient initially resting and comfortable in bed this morning. Later on rounds, patient SOB and complaining of difficulty breathing. - Objective MAR Reviewed: Yes Vital Signs & Weight: Vital Signs (12 hours) Temp Pulse Resp BP Pulse Ox 05/29/19 04:36 97.3 F L 113 H 18 104/65 97 05/29/19 00:00 98.0 F 107 H 18 104/67 90 L 05/28/19 20:00 98.8 F 115 H 20 93/57 L 93 L 05/28/19 19:40 96 Weight Admit Weight 104.326 kg Weight 115.8 kg Most Recent Monitor Data Heart Rate from ECG 99 NIBP 114/73 NIBP BP-Mean 86 Respiration from ECG 27 SpO2 96 I&O: 05/28/19 05/29/19 05/30/19 06:59 06:59 06:59 Intake Total 2030 1360 Output Total 675 100 Balance 1355 1260 Result Diagrams: 05/29/19 10:10 05/29/19 04:54 Phys Exam - Physical Examination mild distress HEENT: PERRLA, moist MMs, sclera anicteric Neck: supple, full ROM Respiratory: clear to auscultation bilateral Cardiovascular: RRR, no significant murmur, no rub Gastrointestinal: soft, non-tender, no distention, positive bowel sounds trace edema b/l Neurological: non-focal, moves all 4 limbs Psychiatric: normal affect, A&O x 3 Skin: no rash, normal turgor, cap refill <2 seconds Dx/Plan (1) Acute kidney injury Code(s): N17.9 - ACUTE KIDNEY FAILURE, UNSPECIFIED Status: Acute (2) Adenocarcinoma of colon Code(s): C18.9 - MALIGNANT NEOPLASM OF COLON, UNSPECIFIED Status: Chronic (3) CKD (chronic kidney disease) Code(s): N18.9 - CHRONIC KIDNEY DISEASE, UNSPECIFIED Status: Chronic Qualifiers: Chronic kidney disease stage: stage 2 (mild) Qualified Code(s): N18.2 - Chronic kidney disease, stage 2 (mild) (4) Diabetes Code(s): E11.9 - TYPE 2 DIABETES MELLITUS WITHOUT COMPLICATIONS Status: Chronic Qualifiers: Diabetes mellitus type: type 2 Diabetes mellitus 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 Park consulted, appreciate recs - Bilateral Renal US unremarkable - Trialysis catheter placed 05/22. Tunnel cath placed 05/[address] Salguero. - Continue NS @75 - Continue dialysis Sacral wound ulcer, stage 3 - Wound care Recent history of adenocarcinoma s/p colectomy, complicated by saddle embolus - Currently on Heparin gtt, check PTT and adjust accordingly. - Continue Warfarin and d/c heparin once therapeutic. Last INR 1.4 on 05/28 at 1800. - Will order H/H, ABG, XCR, EKG, Trop and BNP to evaluate for decompensation. Normocytic anemia - Hgb down to 6.9. Will transfuse 1uPRBC. Continue to monitor. Hx of chronic HTN Diabetes mellitus - ACHS accuchecks. Hypoglycemic protocol - Hold metformin, SSI. Shock requiring pressors, likely multifactorial. Resolved. - Palliative care consulted Dispo: OT recommends Rehab Code: DNR Diet: Renal low protein, carb consistent VTE PPx: Ther. heparin for saddle embolus GI PPx: Protonix Case discussed with Dr. Portillo Addendum - Attending - Attending Attestation Date/Time: 05/29/19 4793 I personally evaluated the patient and discussed the management with Dr. Matson I agree with the History, Examination, Assessment and Plan documented above with any addition or exceptions noted below - Patient c/o SOB. States that it acutely started this morning. Afebrile P115 O2 sat= 86% on 3L NC Lungs- CTA b/l ; no wheezing; CV- tachycardic, no murmur. Abd- soft, nt/nd. A/P: 1) Acute hypoxia- had been stable for last several days; no w with acute dyspnea- will check EKG, CXR, BNP, ABG, trop I, and H/H. Titrate O2; may need to change to facemask. Re-evaluate shortly. 2) PE - continue heparin until therapeutic on warfarin. Daily INR. 3) ESRD- continue HD. 4) Colon adenoca sp partial colectomy - stable.
[2019-05-29] MEDS: Ferrous Sulfate 325 MG TAB PO SCH ×2 (08:23→18:18)
--- NOTE | 2019-05-29 09:58 | PRG ---
DATE OF SERVICE: 05/29/2019 SUBJECTIVE: Seems to be in better spirits compared to when I saw him within the last week. OBJECTIVE: VITAL SIGNS: On exam, temperature 96, pulse 111, respirations 18, O2 saturation 92%, and blood pressure 103/65. HEENT: Unremarkable. NECK: No adenopathy or JVD. LUNGS: Clear anteriorly. CARDIAC: S1, S2. Regular. ABDOMEN: Somewhat protuberant. EXTREMITIES: No edema. LABORATORY DATA: White count is 8.2, hemoglobin 6.9, hematocrit 21.8, and platelet count 215. Sodium 134, potassium 4.4, BUN 46, creatinine 9.9, glucose 213. ASSESSMENT: 1. Metastatic colon cancer. 2. Renal failure. 3. Pulmonary embolism. PLAN: Would continue indefinite anticoagulation. I think it will be advisable to start checking INRs tomorrow. Goal INR 2.0 to 2.5. Job ID: [id number]
[2019-05-29 10:24] LABS: Hemoglobin 7.7 g/dL (14.0-18.0)
--- NOTE | 2019-05-29 10:33 | RAD ---
Portable chest: HISTORY: Shortness of breath COMPARISON: 05/26/2019 FINDINGS:Borderline cardiomegaly with vascular congestion. Confluent infiltrates in both mid and lowe r lungs with atelectasis. Small bilateral effusions. Hazy infiltrate or edema in the left upper lung. Dual-lumen central line overlies SVC. IMPRESSION:Bilateral infiltrates and small bilateral effusions. Worsening of the chest when compared to 05/26/2019.
[2019-05-29 10:39] LABS: PTT 151.6 SEC (22.9-36.1)
[2019-05-29 12:03] LABS: Hemoglobin A1c 7.6 % (4.0-6.0)
--- NOTE | 2019-05-29 13:41 | PRG ---
DATE OF SERVICE: 05/29/2019 SUBJECTIVE: A 64-year-old gentleman, being seen for end-stage renal disease. The patient denied nausea, vomiting, or chest pain. OBJECTIVE: CONSTITUTIONAL: The patient is awake and alert. VITAL SIGNS: Pulse 75, breathing 16, blood pressure 132/56. GENERAL APPEARANCE AND MENTAL STATUS: Fair. HEAD/NECK: Normocephalic. Atraumatic. EYES: EOMI. No deformity. EARS: Clear. No ulcers. NOSE: Intact. No lesions. MOUTH: Clear. No discharge. THROAT: Clear. No exudate. LUNGS: Clear. No crackles. CARDIAC: S1, S2. No rub. ABDOMEN: Benign. Bowel sounds positive. GENITALIA/RECTUM: Rivera absent. BACK/EXTREMITIES: Edema 0+. NEUROLOGICAL: Alert and motor intact. SKIN: LYMPHATICS: LABORATORY DATA: Showed hemoglobin 7.7. ASSESSMENT AND PLAN: 1. Stage 6 chronic kidney disease, plan dialysis. 2. Hyperkalemia, stable. 3. Anemia, stable. 4. Uremia, plan dialysis. Job ID: [id number]
--- NOTE | 2019-05-29 17:24 | PDOC.EVN ---
Event Note - Event Note Event Note: Called to bedside for desat after dialysis had finished oxygen was turned from 3-> 4 L and after a few minutes his sats were up to 100% on exam Decreased breath sound in RLL otherwise CTA-B, no wheezes/rales Will order CXR
[2019-05-29] MEDS: Warfarin Sodium 5 MG TAB PO SCH (18:18)
[2019-05-29 18:48] LABS: INR-International Normal Ratio 1.9; Prothrombin Time 21.3 SEC (12.0-14.7)
[2019-05-29 19:15] LABS: Troponin I 2.655 ng/mL (< 0.028)
--- NOTE | 2019-05-29 19:24 | RAD ---
CHEST ONE VIEW: HISTORY: Followup after dialysis. COMPARISON: Earlier exam from the same day. FINDINGS: A right-sided HemoSplit catheter is present and a left-sided central vein is also again noted, unchan ged in position. The catheter is directed into the right brachiocephalic vein. The pleural and parenc hymal lung changes appear fairly similar to the previous study. IMPRESSION: Overall stable chest. POS: [place]
--- NOTE | 2019-05-29 20:25 | PDOC.EVN ---
Event Note - Event Note Event Note: Upon evaluation of patient, noted that patient no longer on heparin drip. Last PTT was noted to be 150 at 1010 this AM. Since this time no repeat labs. Patient has just gotten back from dialysis. Discussed with nurse and a stat PTT was placed showing PTT of 46. However, since patient has been off the drip for a period of time, recommendation was to restart the heparin protocol. We have put in orders to restart heparin protocol at this time. Of note, troponin continues to elevated at 2.655 (up from 2.3). Patient is without chest pain currently. Respiratory status improved from earlier today. WIll continue to trend troponin. EKG showed normal sinus rhythm. If patient becomes symptomatic with chest roman will repeat EKG and consult cardiology.
[2019-05-29] MEDS ORDERED: Heparin 25,000 units/D5W 500 ML IVPB SCH (20:30)
[2019-05-29] MEDS ORDERED: Heparin 10,000 UNITS/ 10 ML VIAL SLOW IVP SCH (20:30)
[2019-05-29] MEDS ORDERED: Insulin Glargine 10 UNITS in Pre-Filled Syringe 1 EACH SC SCH (21:00)
[2019-05-29 23:00] LABS: Hemoglobin 11.1 g/dL (14.0-18.0); Platelet Count 146 thou/uL (130-400)
[2019-05-29] MEDS: Heparin 25,000 units/D5W 500 ML IVPB SCH (23:08)
[2019-05-29 23:24] LABS: Critical Call Chem Troponin I RESULT DECREASING; Troponin I 2.576 ng/mL (< 0.028)
[2019-05-29] MEDS: Heparin 10,000 UNITS/ 10 ML VIAL SLOW IVP SCH (23:33)
--- NOTE | 2019-05-30 00:56 | CON ---
DATE OF CONSULTATION: HISTORY OF PRESENT ILLNESS: Pritesh Deleon is an unfortunate 64-year-old black male, who was hospitalized stents in 2019. 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 He was admitted and was tachycardic and seen by Dr. Barbosa at that time and it was felt best to proceed on with surgery. Initial echocardiogram showed an ejection fraction of 50% to 55%; however, repeat echo two weeks later showed that his ejection fraction dropped to 40% to 45%. His course has also been complicated by saddle pulmonary embolism and development of renal failure necessitating dialysis. Apparently, earlier today, he became more dyspneic and dropped his saturations and was transferred back to telemetry. He denies any chest discomfort. He denies any leg pain. PAST MEDICAL HISTORY: Hypertension, diabetes, acute renal failure necessitating dialysis, saddle pulmonary embolism, and metastatic colon cancer. PAST SURGICAL HISTORY: Operations; exploratory laparotomy, subtotal colectomy with end ileostomy, and mobilization of splenic flexure. SOCIAL HISTORY: He does not smoke or drink. CURRENT MEDICATIONS: 1. Ferrous sulfate 325 daily. 2. Heparin drip. 3. Sliding scale insulin. 4. Warfarin 5 mg daily. 5. Pantoprazole 40 daily. REVIEW OF SYSTEMS: Otherwise unremarkable. PHYSICAL EXAMINATION: VITAL SIGNS: Blood pressure 132/56, pulse 54. HEENT: PERRL. NECK: Supple. CHEST: Clear. CARDIAC: S1 and S2 normal without any S3, S4, or murmurs. ABDOMEN: Normal bowel sounds without tenderness. EXTREMITIES: Revealed no clubbing, cyanosis, or edema. NEUROLOGIC: Grossly intact. LABORATORY DATA: EKG today revealed sinus tachycardia with rate of 119 per minute, inverted T-waves in 2, 3, and F, which he has had on previous EKGs. Hemoglobin 7.7, hematocrit 24.2, and PTT 151.6. Sodium 134, potassium 4.4, chloride 97, carbon dioxide 24, BUN 46, and creatinine 9.93. Troponin I 2.320. BNP 2742.4. IMPRESSION: 1. Acute hypoxemia today, which is multifactorial. He has had saddle pulmonary embolism and also chest x-ray today, shows bilateral infiltrates, small bilateral effusions. BNP is also significantly increased. 2. Fall of ejection fraction from 50%-55% to 40%-45% two weeks later. Another echo has been ordered at the present time. 3. Renal failure, on dialysis. 4. Saddle pulmonary embolism. 5. Metastatic colon cancer. 6. Hypertension. 7. Hypercholesterolemia. 8. Diabetes. PLAN: Serial cardiac enzymes will be performed. Certainly, he may have had a non-STEMI. However, with his metastatic colon cancer and DNR status, he is only a candidate for medical therapy. Echocardiogram will be performed to reassess left ventricular function. Certainly, more volume needs to be probably removed at dialysis. Dr. Barbosa will return in the morning. Job ID: [id number] [facility]
[2019-05-30 03:54] LABS: PTT Greater than 250.0 SEC (22.9-36.1)
--- NOTE | 2019-05-30 06:19 | PDOC.FM ---
- Subjective Subjective: Yesterday, it was noted that the heparin drip had not been re-started and no labs had been drawn. Heparin drip protocol was re-initiated. Patient's respiratory status improved throughout the day yesterday. Patient received dialysis yesterday as well as 1u PRBC. Patient remains on nasal cannula. This morning, patient is resting in bed. Patient states he feels better as compared to yesterday. Denies chest pain or SOB. He has not gotten up to walk much. Per nursing, the heparin was off due to PTT being elevated. - Objective MAR Reviewed: Yes Vital Signs & Weight: Vital Signs (12 hours) Temp Pulse Resp BP Pulse Ox 05/30/19 04:30 97.3 F L 104 H 20 107/72 97 05/30/19 00:00 112 H 16 104/68 96 05/29/19 20:00 95 05/29/19 19:44 98.5 F 118 H 16 118/72 97 Weight Admit Weight 104.326 kg Weight 110 kg Most Recent Monitor Data Heart Rate from ECG 99 NIBP 114/73 NIBP BP-Mean 86 Respiration from ECG 27 SpO2 96 I&O: 05/28/19 05/29/19 05/30/19 06:59 06:59 06:59 Intake Total 2030 1950 0 Output Total 675 600 Balance 1355 1350 0 Result Diagrams: 05/29/19 22:48 05/30/19 06:07 Phys Exam - Physical Examination Constitutional: NAD HEENT: PERRLA, moist MMs, sclera anicteric Neck: supple, full ROM Respiratory: clear to auscultation bilateral Cardiovascular: RRR, no significant murmur, no rub Gastrointestinal: soft, non-tender, no distention, positive bowel sounds Musculoskeletal: no edema, pulses present Neurological: non-focal, moves all 4 limbs Psychiatric: normal affect, A&O x 3 Skin: no rash, normal turgor, cap refill <2 seconds Dx/Plan (1) Acute kidney injury Code(s): N17.9 - ACUTE KIDNEY FAILURE, UNSPECIFIED Status: Acute (2) Adenocarcinoma of colon Code(s): C18.9 - MALIGNANT NEOPLASM OF COLON, UNSPECIFIED Status: Chronic (3) CKD (chronic kidney disease) Code(s): N18.9 - CHRONIC KIDNEY DISEASE, UNSPECIFIED Status: Chronic Qualifiers: Chronic kidney disease stage: stage 2 (mild) Qualified Code(s): N18.2 - Chronic kidney disease, stage 2 (mild) (4) Diabetes Code(s): E11.9 - TYPE 2 DIABETES MELLITUS WITHOUT COMPLICATIONS Status: Chronic Qualifiers: Diabetes mellitus type: type 2 Diabetes mellitus jail insulin use: without termite control service representative use (5) HLD (hyperlipidemia) Code(s): E78.5 - HYPERLIPIDEMIA, UNSPECIFIED Status: Chronic (6) HTN (hypertension) Code(s): I10 - ESSENTIAL (PRIMARY) HYPERTENSION Status: Chronic - Plan Plan: Acute kidney injury on CKD stage 3 likely prerenal due to ileostomy output - Dr. Park consulted, appreciate recs - Bilateral Renal US unremarkable - Trialysis catheter placed 05/22. Tunnel cath placed 05/[address] Salguero. - Continue dialysis MWF Recent history of adenocarcinoma s/p colectomy, complicated by saddle embolus - Patient was on heparin gtt. Patient's INR now 2.6 - therapeutic. Will stop heparin drip. - Continue Warfarin at current dose. Can consider rechecking INR later today. Elevated troponin, likely NSTEMI - Cardiology consulted after patient found to have a troponin of 2.3, elevated from baseline. Trended to 2.655 -> 2.576. Patient is a candidate only for medical management. Repeat echo has been ordered to evaluate LV function - pending. Appreciate cardiology recommendations. Sacral wound ulcer, stage 3 - Wound care Normocytic anemia - s/p 2uPRBCs; 1st transfused on 05/22 and 2nd on 05/29. - Hgb up to 11 now. Will continue to monitor. Hx of chronic HTN - continue to monitor. BPs stable. Diabetes mellitus - ACHS accuchecks. Hypoglycemic protocol - BG >250s yesterday, started patient on lantus. Will continue to adjust dosing based off SSI. BG now have been 90-218. Shock requiring pressors, likely multifactorial. Resolved. - Palliative care consulted Dispo: OT recommends Rehab Code: DNR Diet: Renal low protein, carb consistent VTE PPx: Ther. heparin for saddle embolus, warfarin GI PPx: Protonix Dispo: CM for discharge planning, rehab screen placed, will need PT/OT Case discussed with Dr. Portillo Addendum - Attending - Attending Attestation Date/Time: 05/30/19 1343 I personally evaluated the patient and discussed the management with Dr. Matson I agree with the History, Examination, Assessment and Plan documented above with any addition or exceptions noted below- Patient without complaints. States that he feels better than yesterday. Denies any SOB. Afebrile VSS. A/P: 1) 1) Acute hypoxia- improved; most likely multufactorial but component appears to be volume overload as symptoms imporved after dialysis; continue to monitror. 2) PE - INR therapeutic; heparin d/c'd and will decrease warfarin dose as INR rapidly changed. 3) ESRD- continue HD. 4) Colon adenoca sp partial colectomy- stable, 5) Deconditioning- resume PT. Case management for rehab vs. SNF.
[2019-05-30 06:23] LABS: INR-International Normal Ratio 2.6; Prothrombin Time 27.8 SEC (12.0-14.7)
[2019-05-30 06:27] LABS: PTT 191.3 SEC (22.9-36.1)
[2019-05-30 06:39] LABS: Anion Gap 15 mmol/L (10-20); BUN (Urea Nitrogen) 37 mg/dL (8.4-25.7); Calc. Creatinine Clearance 16 mL/min (70-130); Calcium 7.6 mg/dL (7.8-10.44); Carbon Dioxide 25 mmol/L (23-31); Chloride 102 mmol/L (98-107); Estimated GFR-MDRD 9; Glucose 161 mg/dL (80-115); Potassium 4.2 mmol/L (3.5-5.1); Sodium 138 mmol/L (136-145)
[2019-05-30] MEDS: Ferrous Sulfate 325 MG TAB PO SCH ×2 (08:58→16:32)
[2019-05-30] MEDS: Insulin Glargine 12 UNITS in Pre-Filled Syringe 1 EACH SC SCH ×2 (08:59→21:23)
[2019-05-30] MEDS ORDERED: Calcium Citrate 950 MG TAB PO SCH (09:15)
--- NOTE | 2019-05-30 09:50 | PRG ---
DATE OF SERVICE: 05/30/2019 SUBJECTIVE: This is a 64-year-old gentleman, being seen for end-stage renal disease. The patient denied nausea, vomiting, or chest pain. OBJECTIVE: GENERAL: The patient is awake and alert. VITAL SIGNS: Pulse 75, breathing 16, blood pressure 108/70. GENERAL APPEARANCE AND MENTAL STATUS: Fair. HEAD/NECK: Normocephalic. Atraumatic. EYES: EOMI. No deformity. EARS: Clear. No ulcers. NOSE: Intact. No lesions. MOUTH: Clear. No discharge. THROAT: Clear. No exudate. LUNGS: Clear. No crackles. CARDIAC: S1, S2. No rub. ABDOMEN: Benign. Bowel sounds positive. GENITALIA/RECTUM: Rivera absent. BACK/EXTREMITIES: Edema 0+. NEUROLOGICAL: Alert and motor intact. LABORATORY DATA: Reviewed. ASSESSMENT: 1. Stage 6 chronic kidney disease, continue hemodialysis. 2. Hypertension, stable. 3. Anemia, stable. 4. Medication based on GFR appropriate. We will plan dialysis tomorrow. Job ID: [id number]
--- NOTE | 2019-05-30 10:37 | PRG ---
DATE OF SERVICE: 05/30/2019 SUBJECTIVE: Mr. Deleon looks to be doing okay. He had no acute complaints. OBJECTIVE: VITAL SIGNS: Temperature 97.6, pulse 105, respirations 18, oxygen saturation 97% on 3 L. HEENT: Unremarkable. NECK: No adenopathy or JVD. CHEST: Fairly clear. CARDIAC: S1 and S2. Regular. ABDOMEN: Soft. EXTREMITIES: No edema. LABORATORY DATA: Sodium 138, potassium 4.2, BUN 37, creatinine 7.3, glucose 161. INR is 2.6, PTT is 50.1. ASSESSMENT: 1. Pulmonary embolism. 2. Therapeutic INR. 3. Metastatic colon cancer. 4. Acute renal failure without evidence of recovery. PLAN: I will go ahead and stop the heparin drip, and we will continue the Coumadin, but reduce the dose significantly given that his INR has shot up so fast. He will continue dialysis. I think controlling his INR maybe very difficult given his underlying condition. Job ID: [id number]
[2019-05-30] MEDS: Warfarin Sodium 2 MG TAB PO SCH (16:43)
[2019-05-30] MEDS ORDERED: Warfarin Sodium 5 MG TAB PO SCH (17:00)
[2019-05-30] MEDS ORDERED: Heparin 10,000 UNITS/ 10 ML VIAL ONE (18:00)
[2019-05-31 05:09] LABS: INR-International Normal Ratio 2.3; Prothrombin Time 25.3 SEC (12.0-14.7)
[2019-05-31 05:24] LABS: Anion Gap 16 mmol/L (10-20); BUN (Urea Nitrogen) 43 mg/dL (8.4-25.7); Calc. Creatinine Clearance 13 mL/min (70-130); Calcium 7.9 mg/dL (7.8-10.44); Carbon Dioxide 24 mmol/L (23-31); Chloride 102 mmol/L (98-107); Estimated GFR-MDRD 7; Glucose 102 mg/dL (80-115); Potassium 4.3 mmol/L (3.5-5.1); Sodium 138 mmol/L (136-145)
--- NOTE | 2019-05-31 06:28 | PDOC.FM ---
- Subjective Subjective: NAEO. Patient states he is feeling well this morning. He is laying comfortably in bed. Patient states he worked with PT yesterday. He did get dizzy and slightly SOB during his therapy. Otherwise, he states he is tolerating PO well and is ready to go to rehab. - Objective MAR Reviewed: Yes Vital Signs & Weight: Vital Signs (12 hours) Temp Pulse Resp BP Pulse Ox 05/31/19 04:00 97.4 F L 101 H 18 104/68 98 05/31/19 02:12 97 05/30/19 20:00 97.5 F L 116 H 22 H 121/80 97 Weight Admit Weight 104.326 kg Weight 110 kg Most Recent Monitor Data Heart Rate from ECG 99 NIBP 114/73 NIBP BP-Mean 86 Respiration from ECG 27 SpO2 96 I&O: 05/29/19 05/30/19 05/31/19 06:59 06:59 06:59 Intake Total 1950 0 200 Output Total 600 250 Balance 1350 0 -50 Result Diagrams: 05/31/19 04:30 05/31/19 04:30 Phys Exam - Physical Examination Constitutional: NAD HEENT: moist MMs, sclera anicteric Neck: supple, full ROM Respiratory: clear to auscultation bilateral Cardiovascular: RRR, no significant murmur, no rub Gastrointestinal: soft, non-tender, no distention, positive bowel sounds Musculoskeletal: pulses present trace edema b/l Neurological: non-focal, moves all 4 limbs Psychiatric: normal affect, A&O x 3 Skin: no rash, normal turgor, cap refill <2 seconds Dx/Plan (1) Acute kidney injury Code(s): N17.9 - ACUTE KIDNEY FAILURE, UNSPECIFIED Status: Acute (2) Adenocarcinoma of colon Code(s): C18.9 - MALIGNANT NEOPLASM OF COLON, UNSPECIFIED Status: Chronic (3) CKD (chronic kidney disease) Code(s): N18.9 - CHRONIC KIDNEY DISEASE, UNSPECIFIED Status: Chronic Qualifiers: Chronic kidney disease stage: stage 2 (mild) Qualified Code(s): N18.2 - Chronic kidney disease, stage 2 (mild) (4) Diabetes Code(s): E11.9 - TYPE 2 DIABETES MELLITUS WITHOUT COMPLICATIONS Status: Chronic Qualifiers: Diabetes mellitus type: type 2 Diabetes mellitus halfway insulin use: without halfway 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 Patient's INR now 2.3 as of 05/31 @ 0430 - therapeutic. - Continue Warfarin at 2mg daily dose. Will likely be difficult to titrate warfarin dose due to patient being on dialysis and other co-morbidities. Elevated troponin, likely NSTEMI - Cardiology consulted after patient found to have a troponin of 2.3, elevated from baseline. Trended to 2.655 -> 2.576. Patient is a candidate only for medical management. Repeat echo has been ordered to evaluate LV function - showing new EF of 20-25%. Appreciate cardiology recommendations. Acute kidney injury on CKD stage 3 likely prerenal due to ileostomy output Trialysis catheter placed 05/22. Tunnel cath placed 05/[address] Salguero. Bilateral Renal US unremarkable. - Dr. Park consulted, appreciate recs. - Continue dialysis MWF - dialysis today. Sacral wound ulcer, stage 3 - Wound care Normocytic anemia - s/p 2uPRBCs; 1st transfused on 05/22 and 2nd on 05/29. - Hgb up to 11 then drop to 9.1 today. Will continue to monitor. Hx of chronic HTN - continue to monitor. BPs stable. Diabetes mellitus - ACHS accuchecks. Hypoglycemic protocol - Started patient on lantus. Will continue to adjust dosing based off SSI. BG now in normal range. Shock requiring pressors, likely multifactorial. Resolved. - Palliative care consulted Dispo: PT/OT recommends Rehab Code: DNR Diet: Renal low protein, carb consistent VTE PPx: warfarin GI PPx: Protonix Dispo: CM for discharge planning, rehab screen placed, will need PT/OT. Case discussed with Dr. Portillo Addendum - Attending - Attending Attestation Date/Time: 05/31/19 5475 I personally evaluated the patient and discussed the management with Dr. Matson I agree with the History, Examination, Assessment and Plan documented above with any addition or exceptions noted below - Patient seen in dialysis; denies any SOB. Afebrile VSS. A/P: 1) PE- therapeutic on coumadin; continue to monitor daily INR. 2) ESRD on HD- continue HD; plans as per nephrology, 3) HFrEF - continue entresto as per cardiology. Will discuss with patient and consultants regarding lifevest. 4) Colon cancer - will d/w oncology. 5) D/c planning - continue PT; awaiting rehab eval.
[2019-05-31 06:34] LABS: #Eosinphils 0.3 thou/uL (0.0-0.7); #Lymphocytes 1.7 thou/uL (1.20-3.40); #Monocytes 0.7 thou/uL (0.11-0.59); #Neutrophils 8.2 thou/uL (1.40-6.50); %Basophils 0.4 % (0.0-1.0); %Eosinophils 2.5 % (0.0-10.0); %Lymphocytes 15.7 % (21.0-51.0); %Monocytes 6.6 % (0.0-10.0); %Neutrophils 74.8 % (42.0-75.0); Hemoglobin 9.1 g/dL (14.0-18.0); Mean Corpuscular Hemoglobin 25.9 pg (27.0-31.0); Platelet Count 181 thou/uL (130-400); RBC Distribution Width 17.8 % (11.5-14.5); Red Blood Cell (RBC) Count 3.52 mill/uL (4.70-6.10); White Blood Cell (WBC) Count 10.9 thou/uL (4.8-10.8)
[2019-05-31] MEDS ORDERED: Sacubitril 24.5 MG/Valsartan 25.5 MG TABLET PO SCH ×2 (09:40→21:00)
--- NOTE | 2019-05-31 09:43 | PRG ---
DATE OF SERVICE: 05/31/2019 SUBJECTIVE: This is a 64-year-old gentleman, being seen for end-stage renal disease. The patient denies nausea, vomiting, or chest pain. OBJECTIVE: GENERAL: The patient is awake and alert. VITAL SIGNS: Pulse 101, breathing 16, and blood pressure 104/68. GENERAL APPEARANCE AND MENTAL STATUS: Fair. HEAD/NECK: Normocephalic. Atraumatic. EYES: EOMI. No deformity. EARS: Clear. No ulcers. NOSE: Intact. No lesions. MOUTH: Clear. No discharge. THROAT: Clear. No exudate. LUNGS: Clear. No crackles. CARDIAC: S1, S2. No rub. ABDOMEN: Benign. Bowel sounds positive. GENITALIA/RECTUM: Rivera absent. BACK/EXTREMITIES: Edema 0+. NEUROLOGICAL: Alert and motor intact. SKIN: LYMPHATICS: LABORATORY DATA: Reviewed. ASSESSMENT AND PLAN: 1. Stage 6 chronic kidney disease, continue hemodialysis. 2. Hypertension, stable. 3. Anemia, stable. 4. Medication based on GFR appropriate. Job ID: [id number]
--- NOTE | 2019-05-31 10:13 | PRG ---
DATE OF SERVICE: 05/31/2019 SUBJECTIVE: He seems to be doing reasonably well. I saw him on dialysis this morning. OBJECTIVE: VITAL SIGNS: Temperature 97.7, pulse 90, respirations 18, and O2 saturation 98% on 2 L. HEENT: Unremarkable. NECK: No JVD. CHEST: Fairly clear anteriorly. CARDIAC: S1 and S2 regular. ABDOMEN: Soft. LABORATORY DATA: White blood cell count 10.9, hematocrit 28.5, and platelet count 181. His INR is 2.3. Sodium 138, potassium 4.3, BUN 43, creatinine 9.2, and glucose 102. ASSESSMENT: 1. Pulmonary embolism. 2. Colon cancer. 3. Acute renal failure. PLAN: Continue anticoagulation indefinitely. He is stable for transition to rehab once the dialysis issues are worked out. We will follow distantly. Job ID: [id number]
[2019-05-31 11:58] VITALS: BMI 32.8
[2019-05-31] MEDS: Insulin Glargine 12 UNITS in Pre-Filled Syringe 1 EACH SC SCH ×2 (12:15→21:39)
[2019-05-31] MEDS: Ferrous Sulfate 325 MG TAB PO SCH ×2 (12:37→16:23)
[2019-05-31] MEDS: Warfarin Sodium 2 MG TAB PO SCH (16:23)
[2019-06-01 06:01] LABS: INR-International Normal Ratio 2.3; Prothrombin Time 24.8 SEC (12.0-14.7)
[2019-06-01 06:16] LABS: Anion Gap 12 mmol/L (10-20); BUN (Urea Nitrogen) 35 mg/dL (8.4-25.7); Calc. Creatinine Clearance 16 mL/min (70-130); Carbon Dioxide 27 mmol/L (23-31); Chloride 102 mmol/L (98-107); Estimated GFR-MDRD 10; Glucose 97 mg/dL (80-115); Potassium 4.2 mmol/L (3.5-5.1); Sodium 137 mmol/L (136-145)
--- NOTE | 2019-06-01 06:26 | PDOC.FM ---
- Subjective Subjective: NAEO. Patient resting comfortably in bed. No complaints or concerns. As patient was talking he was noted to have a dry cough. He states that this has been bothering him some. He denies SOB associated with the cough. He reports getting up with PT yesterday but is still getting dizzy with ambulation. He denies any fever, chills, chest pain or palpitations. States dialysis went well yesterday and he did not have any issues. - Objective MAR Reviewed: Yes Vital Signs & Weight: Vital Signs (12 hours) Temp Pulse Resp BP Pulse Ox 06/01/19 04:00 98.5 F 92 14 101/66 98 05/31/19 23:15 96 101/61 05/31/19 19:50 99 Weight Admit Weight 104.326 kg Weight 107.5 kg Most Recent Monitor Data Heart Rate from ECG 99 NIBP 114/73 NIBP BP-Mean 86 Respiration from ECG 27 SpO2 96 I&O: 05/30/19 05/31/19 06/01/19 06:59 06:59 06:59 Intake Total 0 200 810 Output Total 250 750 Balance 0 -50 60 Result Diagrams: 05/31/19 04:30 06/01/19 05:35 Phys Exam - Physical Examination Constitutional: NAD HEENT: moist MMs, sclera anicteric Neck: supple, full ROM Respiratory: clear to auscultation bilateral Cardiovascular: RRR, no significant murmur, no rub Gastrointestinal: soft, non-tender, no distention, positive bowel sounds colostomy bag in RLQ Musculoskeletal: no edema, pulses present Neurological: non-focal, moves all 4 limbs Psychiatric: normal affect, A&O x 3 Skin: no rash, normal turgor, cap refill <2 seconds Dx/Plan (1) Acute kidney injury Code(s): N17.9 - ACUTE KIDNEY FAILURE, UNSPECIFIED Status: Acute (2) Adenocarcinoma of colon Code(s): C18.9 - MALIGNANT NEOPLASM OF COLON, UNSPECIFIED Status: Chronic (3) CKD (chronic kidney disease) Code(s): N18.9 - CHRONIC KIDNEY DISEASE, UNSPECIFIED Status: Chronic Qualifiers: Chronic kidney disease stage: stage 2 (mild) Qualified Code(s): N18.2 - Chronic kidney disease, stage 2 (mild) (4) Diabetes Code(s): E11.9 - TYPE 2 DIABETES MELLITUS WITHOUT COMPLICATIONS Status: Chronic Qualifiers: Diabetes mellitus type: type 2 Diabetes mellitus adjunct faculty for medical terminology insulin use: without residential 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 Patient's INR now 2.3 as of 06/01 - therapeutic. Continue current dose. - Continue Warfarin at 2mg daily dose. Will likely be difficult to titrate warfarin dose due to patient being on dialysis and other co-morbidities. - Oncology consulted to go over treatment plan and to discuss residential prognosis. This will help to determine how to manage the patients low EF and if a life vest would be warranted. Elevated troponin, likely NSTEMI - Cardiology consulted after patient found to have a troponin of 2.3 on 05/29, elevated from baseline. Trended to 2.655 -> 2.576. Patient is a candidate only for medical management. Repeat echo - showing new EF of 20-25%. Cardiology suggests discussion with patient/oncology about adjunct faculty for medical terminology prognosis and the patient getting a life vest. Appreciate cardiology recommendations. Acute kidney injury on CKD stage 3 likely prerenal due to ileostomy output Trialysis catheter placed 05/22. Tunnel cath placed 05/[address] Salguero. Bilateral Renal US unremarkable. - Dr. Park consulted, appreciate recs. - Continue dialysis MWF Sacral wound ulcer, stage 3 - Wound care Normocytic anemia - s/p 2uPRBCs; 1st transfused on 05/22 and 2nd on 05/29. - Will continue to monitor. Hx of chronic HTN - continue to monitor. BPs stable. Diabetes mellitus - ACHS accuchecks. Hypoglycemic protocol - Started patient on lantus. Will continue to adjust dosing based off SSI. BG now in normal range. Shock requiring pressors, likely multifactorial. Resolved. - Palliative care consulted Dispo: PT/OT recommends Rehab Code: DNR Diet: Renal low protein, carb consistent VTE PPx: warfarin GI PPx: Protonix Dispo: CM for discharge planning, rehab screen placed, will need PT/OT. Case discussed with Dr. Portillo Addendum - Attending - Attending Attestation Date/Time: 06/01/192013 I personally evaluated the patient and discussed the management with Dr. Matson I agree with the History, Examination, Assessment and Plan documented above with any addition or exceptions noted below- Patient wthout complaints. Afebrile VSS. A/P: 1) ESRD- continue HD. 2) PE- continue anticiagulation; INR therapeutic. 3) DM- stable. 4) HFrEF- stable. Awaiting rehab aproval.
[2019-06-01] MEDS ORDERED: Benzonatate 100 MG CAP PO PRN (08:44)
[2019-06-01] MEDS: Insulin Glargine 12 UNITS in Pre-Filled Syringe 1 EACH SC SCH ×2 (09:54→21:11)
[2019-06-01] MEDS: Ferrous Sulfate 325 MG TAB PO SCH ×2 (09:54→17:27)
--- NOTE | 2019-06-01 11:32 | PRG ---
DATE OF SERVICE: 06/01/2019 SUBJECTIVE: A 64-year-old gentleman being seen for end-stage kidney disease. The patient denies any nausea, vomiting, or chest pain. OBJECTIVE: CONSTITUTIONAL: The patient is awake and alert. VITAL SIGNS: Pulse 75, breathing 16, and blood pressure was 101/61. GENERAL APPEARANCE AND MENTAL STATUS: Fair. HEAD/NECK: Normocephalic. Atraumatic. EYES: EOMI. No deformity. EARS: Clear. No ulcers. NOSE: Intact. No lesions. MOUTH: Clear. No discharge. THROAT: Clear. No exudate. LUNGS: Clear. No crackles. CARDIAC: S1, S2. No rub. ABDOMEN: Benign. Bowel sounds positive. GENITALIA/RECTUM: Rivera absent. BACK/EXTREMITIES: Edema 0+. NEUROLOGICAL: Alert and motor intact. SKIN: LYMPHATICS: LABORATORY DATA: Reviewed. ASSESSMENT AND PLAN: 1. Stage 6 chronic kidney disease. Plan dialysis today for short treatment. Then, we will change to Wednesday, Wednesday, and Wednesday. 2. Hypertension, stable. 3. Anemia, stable. 4. Medication based on GFR appropriate. Job ID: [id number]
--- NOTE | 2019-06-01 11:44 | PRG ---
DATE OF SERVICE: 06/01/2019 SUBJECTIVE: He is about the same. He had no acute complaints. OBJECTIVE: VITAL SIGNS: Temperature 98.5, pulse 92, respirations 14, O2 saturation 98% on 2 L. HEENT: Unremarkable. NECK: No JVD. LUNGS: Fairly clear anteriorly. CARDIAC: S1 and S2, regular. ABDOMEN: Soft. LABORATORY DATA: His INR is 2.3, which is stable. His BUN is 35, creatinine is 7.1. ASSESSMENT: 1. Pulmonary embolism. 2. Colon cancer, status post colectomy. 3. Acute renal failure. PLAN: Continue Coumadin. Main issue now is rehabilitative in nature. No acute pulmonary issues. I will sign off. Please recall if further assistance needed. Job ID: [id number]
--- NOTE | 2019-06-01 12:40 | CON ---
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 HISTORY OF PRESENT ILLNESS: Mr. Deleon is a 64-year-old gentleman, who was diagnosed with moderately differentiated adenocarcinoma. He had isolated liver metastases. He also had a possible prostate malignancy on PET scan. He had a circumferential near obstructing mass at the splenic flexure. He underwent surgery in April, having a subtotal colectomy and ileostomy. He unfortunately had a saddle embolus and was started on anticoagulation. He was sent to inpatient rehab, where he had episode of hypotension. His creatinine kirk to 6.9, so he was admitted for further workup and treatment. He unfortunately is now on hemodialysis. He is awaiting approval to return to rehab. We were asked to see the patient regarding treatment options. PAST MEDICAL HISTORY: 1. Stage IV adenocarcinoma colon cancer. 2. Possible prostate cancer. 3. Diabetes mellitus, type 2. 4. Hypertension. 5. Hyperlipidemia. 6. Anemia. 7. Hiatal hernia. PAST SURGICAL HISTORY: 1. Colonoscopy with polypectomy. 2. Colectomy and ileostomy. 3. Dialysis catheter placement. ALLERGIES: NO KNOWN DRUG ALLERGIES. CURRENT MEDICATIONS: 1. Tylenol. 2. Tessalon. 3. Iron. 4. Insulin. 5. Protonix. 6. Crestor. 7. Entresto. 8. Coumadin. FAMILY HISTORY: Noncontributory. SOCIAL HISTORY: He is single. No children. Lives alone. No alcohol, tobacco, or illicit drug use. REVIEW OF SYSTEMS: Ten-point review of systems is negative except for cough. PHYSICAL EXAMINATION: VITAL SIGNS: Temperature 98.5, pulse is 92, respiratory rate 14, and blood pressure is 102/66. GENERAL: This is an obese gentleman, in no acute distress. HEENT: Normocephalic, atraumatic. NECK: Supple. CARDIOVASCULAR: Regular rate and rhythm. LUNGS: Clear. ABDOMEN: Soft. Bowel sounds are positive. EXTREMITIES: No clubbing or cyanosis. SKIN: No rash. LYMPH: There is no adenopathy. NEUROLOGICAL: Nonfocal. PSYCH: He is alert and oriented and appropriate. PERTINENT LABS AND X-RAYS: Current WBCs are 10.9, hemoglobin 9.1, hematocrit 28.5, platelet count is 181,000, 75% neutrophils, 16% lymphocytes. Sodium 137, potassium 4.2, chloride 102, CO2 is 27, BUN is 35, creatinine 7.05, and calcium 8. BNP is 2742. Troponin was 2.576. ASSESSMENT: 1. Stage IV colon cancer, status post colectomy with ileostomy. 2. Saddle embolus, postoperative. 3. Acute kidney failure, now on hemodialysis. 4. Anemia secondary to chronic blood loss. DISCUSSION: The patient is awaiting rehab placement. He is still a candidate for chemotherapy once he recovers from his recent acute illnesses. The patient will notify us when he is to be discharged home from rehab and we will set up a followup appointment to start treatment. Case has been discussed with Dr. Delgadillo. Thank you for the consult. Job ID: [id number]
[2019-06-01] MEDS ORDERED: Heparin 10,000 UNITS/1 ML VIAL ONE (15:00)
[2019-06-01] MEDS: Warfarin Sodium 2 MG TAB PO SCH (17:28)
[2019-06-01] MEDS ORDERED: Heparin 10,000 UNITS/ 10 ML VIAL ONE (18:00)
[2019-06-01] MEDS: Rosuvastatin 20 MG TAB PO SCH (21:11)
--- NOTE | 2019-06-01 22:55 | EKG ---
Test Reason : Blood Pressure : / mmHG Vent. Rate : 119 BPM Atrial Rate : 119 BPM P-R Int : 130 ms QRS Dur : 108 ms QT Int : 340 ms P-R-T Axes : 051 035 253 degrees QTc Int : 478 ms Sinus tachycardia Abnormal ECG When compared with ECG of 22-MAY-2019 02:27, Significant changes have occurred Confirmed by Brie WRIGHT ([id number]) on 06/01/2019 10:55:47 PM Referred By: KULWINDER Confirmed By:Brie WRIGHT
[2019-06-02] MEDS ORDERED: D5 1/2 NS w/20 mEq KCL 1,000 ML ONE (04:33)
[2019-06-02] MEDS ORDERED: Dextrose 50% Abboject 50 ML SYRINGE ONE ×2 (04:34→15:00)
[2019-06-02 05:00] LABS: #Basophils 0.1 thou/uL (0.0-0.2); #Eosinphils 0.2 thou/uL (0.0-0.7); #Lymphocytes 1.9 thou/uL (1.20-3.40); #Monocytes 0.8 thou/uL (0.11-0.59); #Neutrophils 7.7 thou/uL (1.40-6.50); %Basophils 0.7 % (0.0-1.0); %Eosinophils 1.9 % (0.0-10.0); %Lymphocytes 17.7 % (21.0-51.0); %Monocytes 7.8 % (0.0-10.0); %Neutrophils 71.9 % (42.0-75.0); Hemoglobin 10.6 g/dL (14.0-18.0); Mean Corpuscular HGB CONC 32.1 g/dL (32.0-36.0); Mean Corpuscular Hemoglobin 25.8 pg (27.0-31.0); Mean Corpuscular Volume 80.3 fL (78.0-98.0); Platelet Count 180 thou/uL (130-400); RBC Distribution Width 18.2 % (11.5-14.5); Red Blood Cell (RBC) Count 4.11 mill/uL (4.70-6.10); White Blood Cell (WBC) Count 10.7 thou/uL (4.8-10.8)
[2019-06-02 05:03] LABS: INR-International Normal Ratio 2.3
[2019-06-02 06:20] LABS: ALT (SGPT) 7 U/L (8-55); AST (SGOT) 22 U/L (5-34); Albumin 2.7 g/dL (3.4-4.8); Alkaline Phosphatase 140 U/L (40-110); Anion Gap 14 mmol/L (10-20); BUN (Urea Nitrogen) 29 mg/dL (8.4-25.7); Bilirubin, Total 0.5 mg/dL (0.2-1.2); CK (CPK) 40 U/L (30-200); Calc. Creatinine Clearance 16 mL/min (70-130); Calcium 7.8 mg/dL (7.8-10.44); Carbon Dioxide 24 mmol/L (23-31); Chloride 100 mmol/L (98-107); Estimated GFR-MDRD 10; Globulin 3.4 g/dL (2.4-3.5); Potassium 4.1 mmol/L (3.5-5.1); Protein, Total 6.1 g/dL (5.8-8.1); Sodium 134 mmol/L (136-145)
[2019-06-02 06:26] LABS: Glucose 27 mg/dL (80-115)
--- NOTE | 2019-06-02 06:56 | PDOC.FM ---
- Subjective Subjective: Overnight, code johnie called. Patient was less responsive. He was found to have a BG of 27. It did go up with orange juice and patient was back to his baseline. Patient states that he had a sandwich for dinner and had about the same amount of food as usual. This morning, the patient is resting comfortably in bed. He is no longer on nasal canula and is breathing well. He denies any SOB, chest or abdominal pain, NVD. He denies any fever/chills. Patient still working with PT. - Objective MAR Reviewed: Yes Vital Signs & Weight: Vital Signs (12 hours) Temp Pulse Resp BP Pulse Ox 06/02/19 03:24 97.3 F L 98 16 127/80 95 06/01/19 19:35 98.6 F 98 16 112/64 96 Weight Admit Weight 104.326 kg Weight 105 kg Most Recent Monitor Data Heart Rate from ECG 99 NIBP 114/73 NIBP BP-Mean 86 Respiration from ECG 27 SpO2 96 I&O: 05/31/19 06/01/19 06/02/19 06:59 06:59 06:59 Intake Total 107 344 2158 Output Total 250 750 250 Balance -50 60 750 Result Diagrams: 06/02/19 04:38 06/02/19 04:38 Phys Exam - Physical Examination Constitutional: NAD HEENT: moist MMs, sclera anicteric Neck: supple, full ROM Respiratory: clear to auscultation bilateral Cardiovascular: RRR, no significant murmur, no rub Gastrointestinal: soft, non-tender, no distention, positive bowel sounds ostomy in RLQ Musculoskeletal: no edema, pulses present Neurological: moves all 4 limbs Psychiatric: normal affect, A&O x 3 Skin: no rash, normal turgor, cap refill <2 seconds Dx/Plan (1) Acute kidney injury Code(s): N17.9 - ACUTE KIDNEY FAILURE, UNSPECIFIED Status: Acute (2) Adenocarcinoma of colon Code(s): C18.9 - MALIGNANT NEOPLASM OF COLON, UNSPECIFIED Status: Chronic (3) CKD (chronic kidney disease) Code(s): N18.9 - CHRONIC KIDNEY DISEASE, UNSPECIFIED Status: Chronic Qualifiers: Chronic kidney disease stage: stage 2 (mild) Qualified Code(s): N18.2 - Chronic kidney disease, stage 2 (mild) (4) Diabetes Code(s): E11.9 - TYPE 2 DIABETES MELLITUS WITHOUT COMPLICATIONS Status: Chronic Qualifiers: Diabetes mellitus type: type 2 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 Patient's INR now 2.3 as of 06/02 - therapeutic. Continue current dose. - Continue Warfarin at 2mg daily dose. Will likely be difficult to titrate warfarin dose due to patient being on dialysis and other co-morbidities. - Oncology consulted to go over treatment plan and to discuss senior care prognosis. Patient candidate for chemo. Prognosis 6mo-1yr. Recommend life vest for best possible prognosis. Appreciate recommendations. F/u with onc outpatient for cancer treatment. Elevated troponin, likely NSTEMI - Cardiology consulted after patient found to have a troponin of 2.3 on 05/29, elevated from baseline. Trended to 2.655 -> 2.576. Patient is a candidate only for medical management. Repeat echo - showing new EF of 20-25%. Discussed with cardiology - recommend life vest for patient due to EF. Patient is a candidate for chemotherapy after resolution of this acute illness. Life vest is warranted. Appreciate cardiology recommendations. Acute kidney injury on CKD stage 3 likely prerenal due to ileostomy output Trialysis catheter placed 05/22. Tunnel cath placed 05/[address] Salguero. Bilateral Renal US unremarkable. - Dr. Park consulted, appreciate recs. - Continue dialysis MWF Sacral wound ulcer, stage 3 - Wound care Normocytic anemia - s/p 2uPRBCs; 1st transfused on 05/22 and 2nd on 05/29. - Will continue to monitor. Hx of chronic HTN - continue to monitor. BPs stable. Diabetes mellitus - ACHS accuchecks. Hypoglycemic protocol - Started patient on lantus. Will continue to adjust dosing based off SSI. BG now in normal range. Shock requiring pressors, likely multifactorial. Resolved. - Palliative care consulted Dispo: PT/OT recommends Rehab Code: DNR Diet: Renal low protein, carb consistent VTE PPx: warfarin GI PPx: Protonix Dispo: CM for discharge planning. Patient accepted to rehab. Could be discharged once he receives life vest. Patient will then f/u with onc outpatient after rehab. Case discussed with Dr. Portillo Addendum - Attending - Attending Attestation Date/Time: 06/02/19 5222 I personally evaluated the patient and discussed the management with Dr. Matson I agree with the History, Examination, Assessment and Plan documented above with any addition or exceptions noted below - Patient without complaints. Overnight events noted with hypoglycemia. Afebrile VSS. A/P: 1) PE- INR therapeutic; continue current dose of warfarin, 2) ESRD- continue HD, 3) HfrEF- Lifevest ordered; continue current meds, 4) D/c planning- approved for rehab; transfer today if able to get lifevest.
[2019-06-02] MEDS: Ferrous Sulfate 325 MG TAB PO SCH ×2 (10:17→19:21)
[2019-06-02] MEDS: Insulin Glargine 10 UNITS in Pre-Filled Syringe 1 EACH SC SCH ×2 (10:49→22:23)
[2019-06-02] MEDS ORDERED: Heparin 1,000 UNITS/ML VIAL ONE (11:11)
--- NOTE | 2019-06-02 11:28 | PRG ---
DATE OF SERVICE: 06/02/2019 SUBJECTIVE: A 64-year-old gentleman, being seen for end-stage kidney disease. The patient denies any nausea, vomiting, or chest pain. OBJECTIVE: CONSTITUTIONAL: The patient is awake and alert. VITAL SIGNS: Afebrile, pulse 87, breathing 16, and blood pressure was 127/80. GENERAL APPEARANCE AND MENTAL STATUS: Fair. HEAD/NECK: Normocephalic. Atraumatic. EYES: EOMI. No deformity. EARS: Clear. No ulcers. NOSE: Intact. No lesions. MOUTH: Clear. No discharge. THROAT: Clear. No exudate. LUNGS: Clear. No crackles. CARDIAC: S1, S2. No rub. ABDOMEN: Benign. Bowel sounds positive. GENITALIA/RECTUM: Rivera absent. BACK/EXTREMITIES: Edema 0+. NEUROLOGICAL: Alert and motor intact. SKIN: LYMPHATICS: LABORATORY DATA: Reviewed. ASSESSMENT AND PLAN: 1. Stage 6 chronic kidney disease, plan dialysis. 2. Hypertension, stable. 3. Anemia, stable. 4. Medication based on GFR appropriate. Job ID: [id number]
[2019-06-02] MEDS: Warfarin Sodium 2 MG TAB PO SCH (19:21)
[2019-06-02] MEDS: Rosuvastatin 20 MG TAB PO SCH (22:24)
--- NOTE | 2019-06-03 05:31 | PDOC.FM ---
- Subjective Subjective: Patient had uneventful night. Denies chest pain, sob, or palpitations. Denies any pain this morning. States he is feeling somewhat stronger. Yesterday morning code johnie was called 2/2 unresponsiveness. His glucose was found to be 29 and he rapidly improved with some D10. - Objective Vital Signs & Weight: Vital Signs (12 hours) Temp Pulse Resp BP Pulse Ox 06/03/19 04:00 98.8 F 62 20 93/57 L 98 06/02/19 23:54 98.7 F 101 H 18 109/56 L 94 L 06/02/19 21:55 98.7 F 95 20 90/50 L 97 Weight Admit Weight 104.326 kg Weight 105 kg Most Recent Monitor Data Heart Rate from ECG 99 NIBP 114/73 NIBP BP-Mean 86 Respiration from ECG 27 SpO2 96 I&O: 06/01/19 06/02/19 06/03/19 06:59 06:59 06:59 Intake Total 810 1480 640 Output Total 750 250 860 Balance 60 1230 -220 Result Diagrams: 06/02/19 04:38 06/03/19 07:26 Phys Exam - Physical Examination Constitutional: NAD HEENT: PERRLA, moist MMs Respiratory: no wheezing, clear to auscultation bilateral Cardiovascular: RRR, no significant murmur Gastrointestinal: soft, non-tender, no distention, positive bowel sounds Musculoskeletal: no edema, pulses present Neurological: non-focal, moves all 4 limbs Psychiatric: normal affect, A&O x 3 Skin: no rash, cap refill <2 seconds Dx/Plan (1) Acute kidney injury Code(s): N17.9 - ACUTE KIDNEY FAILURE, UNSPECIFIED Status: Acute (2) Sinus tachycardia Code(s): R00.0 - TACHYCARDIA, UNSPECIFIED Status: Acute (3) Adenocarcinoma of colon Code(s): C18.9 - MALIGNANT NEOPLASM OF COLON, UNSPECIFIED Status: Chronic (4) CKD (chronic kidney disease) Code(s): N18.9 - CHRONIC KIDNEY DISEASE, UNSPECIFIED Status: Chronic Qualifiers: Chronic kidney disease stage: stage 2 (mild) Qualified Code(s): N18.2 - Chronic kidney disease, stage 2 (mild) (5) Diabetes Code(s): E11.9 - TYPE 2 DIABETES MELLITUS WITHOUT COMPLICATIONS Status: Chronic Qualifiers: Diabetes mellitus type: type 2 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 Recent history of adenocarcinoma s/p colectomy, complicated by saddle embolus - Patient was on heparin gtt - now stopped. Patient's INR now 2.3 on 06/02 - therapeutic. Continue current dose. - Continue Warfarin at 2mg daily dose. Will likely be difficult to titrate warfarin dose due to patient being on dialysis and other co-morbidities. 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 Patient candidate for chemo. Prognosis 6mo-1yr. Recommend life vest for best possible prognosis. Appreciate recommendations. F/u with onc outpatient for cancer treatment. Elevated troponin, likely NSTEMI - Cardiology consulted after patient found to have a troponin of 2.3 on 05/29, elevated from baseline. Trended to 2.655 -> 2.576. Patient is a candidate only for medical management. Repeat echo - showing new EF of 20-25%. Discussed with cardiology - recommend life vest for patient due to EF. Patient is a candidate for chemotherapy after resolution of this acute illness. Life vest is warranted. Appreciate cardiology recommendations. Acute kidney injury on CKD stage 3 likely prerenal due to ileostomy output Trialysis catheter placed 05/22. Tunnel cath placed 05/[address] Salguero. Bilateral Renal US unremarkable. - Dr. Park consulted, appreciate recs. - Continue dialysis MWF Sacral wound ulcer, stage 3 - Wound care Normocytic anemia - s/p 2uPRBCs; 1st transfused on 05/22 and 2nd on 05/29. - Will continue to monitor. Hx of chronic HTN - continue to monitor. BPs stable. Diabetes mellitus - ACHS accuchecks. Hypoglycemic protocol - Started patient on lantus. Will continue to adjust dosing based off SSI. BG now in normal range. Shock requiring pressors, likely multifactorial. Resolved. - Palliative care consulted Dispo: PT/OT recommends Rehab Code: DNR Diet: Renal low protein, carb consistent VTE PPx: warfarin GI PPx: Protonix Case discussed with Dr. Portillo Addendum - Attending - Attending Attestation Date/Time: 06/03/19 3150 I personally evaluated the patient and discussed the management with Dr. Johanna Flaherty I agree with the History, Examination, Assessment and Plan documented above with any addition or exceptions noted below - Patient without complaints. Afebrile VSS. A/P: 1) ESRD- continue HD, 2) DM- BG stable; no further hypoglycemia, 3) HFrEF- awaiting lifevest; BP otherwise stable and continue current meds. 4) D/c planning- transfer to rehab when lifevest received.
[2019-06-03 07:50] LABS: INR-International Normal Ratio 2.4; PTT 61.8 SEC (22.9-36.1); Prothrombin Time 25.6 SEC (12.0-14.7)
[2019-06-03 08:06] LABS: Anion Gap 17 mmol/L (10-20); BUN (Urea Nitrogen) 22 mg/dL (8.4-25.7); Calc. Creatinine Clearance 18 mL/min (70-130); Calcium 8.4 mg/dL (7.8-10.44); Carbon Dioxide 21 mmol/L (23-31); Chloride 99 mmol/L (98-107); Estimated GFR-MDRD 11; Glucose 82 mg/dL (80-115); Potassium 5.1 mmol/L (3.5-5.1); Sodium 132 mmol/L (136-145)
[2019-06-03] MEDS: Ferrous Sulfate 325 MG TAB PO SCH ×2 (10:43→18:00)
[2019-06-03] MEDS: Ivabradine 5 MG TAB PO SCH ×2 (10:43→20:22)
[2019-06-03] MEDS: Insulin Glargine 10 UNITS in Pre-Filled Syringe 1 EACH SC SCH ×2 (10:44→21:52)
--- NOTE | 2019-06-03 11:42 | PRG ---
DATE OF SERVICE: 06/03/2019 SUBJECTIVE: A 64-year-old gentleman, being seen for end-stage renal disease. The patient denied nausea, vomiting, or chest pain. OBJECTIVE: See above. Awake, alert, in no acute distress. VITAL SIGNS: Pulse 75, breathing 16, and blood pressure 130/70. GENERAL APPEARANCE AND MENTAL STATUS: Fair. HEAD/NECK: Normocephalic. Atraumatic. EYES: EOMI. No deformity. EARS: Clear. No ulcers. NOSE: Intact. No lesions. MOUTH: Clear. No discharge. THROAT: Clear. No exudate. LUNGS: Clear. No crackles. CARDIAC: S1, S2. No rub. ABDOMEN: Benign. Bowel sounds positive. GENITALIA/RECTUM: Rivera absent. BACK/EXTREMITIES: Edema 0+. NEUROLOGICAL: Alert and motor intact. SKIN: LYMPHATICS: LABORATORY DATA: Reviewed. ASSESSMENT AND PLAN: 1. Stage 6 chronic kidney disease, continue hemodialysis. 2. Hypertension, stable. 3. Anemia, stable. Medications based on GFR appropriate. Job ID: [id number]
[2019-06-03] MEDS: Warfarin Sodium 2 MG TAB PO SCH (18:00)
[2019-06-03] MEDS: Rosuvastatin 20 MG TAB PO SCH (20:22)
--- NOTE | 2019-06-04 06:24 | PDOC.FM ---
- Subjective Subjective: This morning the patient denies CP, SOB or pain. He has no complaints this AM. He states he is ready to go to rehab. He was educated once again on the indication for lifevest and he states he does not want it and understands the risks. - Objective Vital Signs & Weight: Vital Signs (12 hours) Temp Pulse Resp BP Pulse Ox 06/04/19 04:00 98.2 F 83 16 84/53 L 96 06/04/19 00:00 99.1 F 80 16 97/53 L 96 06/03/19 20:18 98.6 F 88 17 113/70 97 Weight Admit Weight 104.326 kg Weight 103.011 kg Most Recent Monitor Data Heart Rate from ECG 99 NIBP 114/73 NIBP BP-Mean 86 Respiration from ECG 27 SpO2 96 I&O: 06/02/19 06/03/19 06/04/19 06:59 06:59 06:59 Intake Total 1480 760 920 Output Total 250 1660 1000 Balance 1230 -900 -80 Result Diagrams: 06/02/19 04:38 06/04/19 05:09 Phys Exam - Physical Examination Constitutional: NAD HEENT: moist MMs, sclera anicteric Respiratory: no wheezing, no rales, clear to auscultation bilateral Cardiovascular: RRR, no significant murmur Gastrointestinal: soft, non-tender, positive bowel sounds Musculoskeletal: no edema, pulses present Neurological: non-focal, moves all 4 limbs Psychiatric: normal affect, A&O x 3 Skin: no rash, cap refill <2 seconds Dx/Plan (1) Acute kidney injury Code(s): N17.9 - ACUTE KIDNEY FAILURE, UNSPECIFIED Status: Acute (2) Sinus tachycardia Code(s): R00.0 - TACHYCARDIA, UNSPECIFIED Status: Acute (3) Adenocarcinoma of colon Code(s): C18.9 - MALIGNANT NEOPLASM OF COLON, UNSPECIFIED Status: Chronic (4) CKD (chronic kidney disease) Code(s): N18.9 - CHRONIC KIDNEY DISEASE, UNSPECIFIED Status: Chronic Qualifiers: Chronic kidney disease stage: stage 2 (mild) Qualified Code(s): N18.2 - Chronic kidney disease, stage 2 (mild) (5) Diabetes Code(s): E11.9 - TYPE 2 DIABETES MELLITUS WITHOUT COMPLICATIONS Status: Chronic Qualifiers: Diabetes mellitus type: type 2 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 Patient's INR now 2.3 on 06/02 - therapeutic. Continue current dose. - Continue Warfarin at 2mg daily dose. Will likely be difficult to titrate warfarin dose due to patient being on dialysis and other co-morbidities. Monitor closely - Oncology consulted to go over treatment plan and to discuss retirement prognosis. Patient candidate for chemo. Prognosis 6mo-1yr. Recommend life vest for best possible prognosis. Appreciate recommendations. F/u with onc outpatient for cancer treatment. Elevated troponin, likely NSTEMI - Cardiology consulted after patient found to have a troponin of 2.3 on 05/29, elevated from baseline. Trended to 2.655 -> 2.576. Patient is a candidate only for medical management. Repeat echo - showing new EF of 20-25%. Discussed with cardiology - recommend life vest for patient due to EF. Patient is a candidate for chemotherapy after resolution of this acute illness. Life vest is warranted. Appreciate cardiology recommendations. Acute kidney injury on CKD stage 3 likely prerenal due to ileostomy output Trialysis catheter placed 05/22. Tunnel cath placed 05/[address] Salguero. Bilateral Renal US unremarkable. - Dr. Park consulted, appreciate recs. - Continue dialysis MWF Sacral wound ulcer, stage 3 - Wound care Normocytic anemia - s/p 2uPRBCs; 1st transfused on 05/22 and 2nd on 05/29. - Will continue to monitor. Hx of chronic HTN - continue to monitor. BPs stable. Diabetes mellitus - ACHS accuchecks. Hypoglycemic protocol - Started patient on lantus. Will continue to adjust dosing based off SSI. BG now in normal range. Shock requiring pressors, likely multifactorial. Resolved. - Palliative care consulted Dispo: PT/OT recommends Rehab Code: DNR Diet: Renal low protein, carb consistent VTE PPx: warfarin GI PPx: Protonix Case discussed with Dr. Portillo Addendum - Attending - Attending Attestation Date/Time: 06/04/19 1023 I personally evaluated the patient and discussed the management with Dr. Johanna Flaherty I agree with the History, Examination, Assessment and Plan documented above with any addition or exceptions noted below - Patient without complaints. Declined lifevest. Afebrile VSS. A/P: 1) ESRD- stable on ND; continue maintenance dialysis, 2) HFrEF - stable; declined lifevest. 3) DM- stable; no further hypoglycemia. 4) Deconditioning - transfer to rehab today.
[2019-06-04 06:26] LABS: INR-International Normal Ratio 2.5; Prothrombin Time 26.8 SEC (12.0-14.7)
[2019-06-04 06:48] LABS: Anion Gap 18 mmol/L (10-20); BUN (Urea Nitrogen) 29 mg/dL (8.4-25.7); Calc. Creatinine Clearance 13 mL/min (70-130); Calcium 8.5 mg/dL (7.8-10.44); Carbon Dioxide 20 mmol/L (23-31); Chloride 100 mmol/L (98-107); Estimated GFR-MDRD 8; Glucose 74 mg/dL (80-115); Sodium 133 mmol/L (136-145)
[2019-06-04] MEDS: Ferrous Sulfate 325 MG TAB PO SCH (08:42)
[2019-06-04] MEDS: Ivabradine 5 MG TAB PO SCH (08:43)
[2019-06-04] MEDS: Insulin Glargine 10 UNITS in Pre-Filled Syringe 1 EACH SC SCH (08:45)
--- NOTE | 2019-06-04 12:32 | PRG ---
DATE OF SERVICE: 06/04/2019 SUBJECTIVE: This is a 64-year-old gentleman being seen for end-stage renal disease. The patient denied nausea, vomiting, or chest pain. OBJECTIVE: CONSTITUTIONAL: Awake, alert, in no acute distress. VITAL SIGNS: Afebrile, pulse 72, breathing 16, blood pressure was 97/53. GENERAL APPEARANCE AND MENTAL STATUS: Fair. HEAD/NECK: Normocephalic. Atraumatic. EYES: EOMI. No deformity. EARS: Clear. No ulcers. NOSE: Intact. No lesions. MOUTH: Clear. No discharge. THROAT: Clear. No exudate. LUNGS: Clear. No crackles. CARDIAC: S1, S2. No rub. ABDOMEN: Benign. Bowel sounds positive. GENITALIA/RECTUM: Rivera absent. BACK/EXTREMITIES: Edema 0+. NEUROLOGICAL: Alert and motor intact. SKIN: LYMPHATICS: LABORATORY DATA: Reviewed. ASSESSMENT AND PLAN: 1. Stage 6 chronic kidney disease. Plan dialysis. 2. Hypertension, stable. 3. Anemia, stable. 4. Congestive heart failure, stable. Job ID: [id number]
[2019-06-04 14:03] VITALS: BP 102/68; TEMP 98.3
--- NOTE | 2019-06-05 09:12 | PRG ---
DATE OF SERVICE: 06/03/2019 ADDENDUM: Dr. Barbosa recommended a LifeVest for this gentleman. He is at risk of sudden cardiac . The patient refuses the LifeVest. I explained to him the LifeVest. He had explained to him how it is placed. He understands the risk of sudden cardiac in the next 90 days, but he does not want the LifeVest and refuses, wished to be discharged to home. 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 Bella. Dr. Barbosa him today. Job ID: [id number]
--- NOTE | 2019-06-06 03:11 | PQF ---
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 Clinical indicators are provided on the bottom of this form for your review Can you please further specify if Pulmonary Embolism is a post operative complication or not based on the clinical indicators below? Please check appropriate box(s): [ ] Saddle pulmonary Artery Embolism is a post-op complication [ ] Saddle Pulmonary Artery Embolism is not a post-op complication [ ] Saddle Pulmonary Vein Embolism is a post-op complication [ ] Saddle Pulmonary Vein Embolism is not a post-op complication [ ] Other diagnosis please specify [ ] Unable to determine In addition, please specify: Present on Admission (POA): [ ] Yes [ ] No [ ] Unable to determine CLINICAL INDICATORS - SIGNS / SYMPTOMS / LABS Family H and P 05/21 pg.1- s/p colectomy for adenocarcinoma complicated by saddle embolus found on CTA H and P pg.4 05/21- Recent history of adenocarcinoma s/p colectomy complicated by saddle embolus treated w/ anticoagulation H and P pg.5- he had prolonged stay because he developed a saddle embolus. RISK FACTORS s/p colectomy for adenocarcinoma-Family H and P 05/21 pg. HTN- H and P pg.4 HLD- H and P pg.4 DM2 H and P pg.5 CAD- H and P pg.5 TREATMENT: IV Fluids- OCT 29 Heparin 5000 units SC TID- OCT 29 Heparin 25,000 units/D5w IV- OCT 29 Warfarin 10mg PO- OCT 30 (This form is maintained as a part of the permanent medical record) 2014 [employer], [employer]. All Rights Reserved [email or web address] [not provided] [email or web address]
--- NOTE | 2019-06-06 20:11 | DIS ---
DATE OF ADMISSION: 05/21/2019 DATE OF DISCHARGE: 06/04/2019 RESIDENT: Dunia Matson MD ADMITTING ATTENDING: Steven Biswas MD DISCHARGE ATTENDING: Nai Portillo MD. CONSULTS: Case Management, Cardiology, Oncology, Pulmonology, Palliative Care, PT/OT, and Wound Care. PROCEDURES: Echo on 05/30/2019, showing an ejection fraction of 20% to 25%, mildly dilated left atrium, moderately enlarged right and left ventricles, moderate mitral regurgitation, mild aortic regurgitation, mild tricuspid regurgitation. PRIMARY DIAGNOSES: 1. Acute kidney injury on chronic kidney disease stage 3, sacral wound ulcer stage III. 2. 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 3. Normocytic anemia. 4. Elevated troponin, likely [id number] myocardial infarction. SECONDARY DIAGNOSES: Hypertension, hyperlipidemia, and diabetes mellitus. DISCHARGE MEDICATIONS: 1. Tessalon 100 mg every 4 hours as needed. 2. Feosol 325 mg oral twice daily. 3. Lantus 10 units subcutaneous twice daily. 4. Zofran 4 mg oral every 6 hours as needed. 5. Crestor 20 mg oral at bedtime. 6. Entresto one tablet oral twice daily. 7. Warfarin 2 mg oral. 8. Tylenol regular strength 650 mg oral every 6 hours as needed. 9. Metformin 1000 mg oral twice daily with meals. 10. Metoprolol 12.5 mg oral twice daily. 11. Protonix 40 mg oral daily. 12. Flomax 0.4 mg oral daily. 13. Lisinopril 5 mg oral daily. DISCONTINUED MEDICATIONS: 1. Lovenox. 2. Zosyn. 3. Crestor 20 mg oral daily. 4. Humalog. HISTORY OF PRESENT ILLNESS/HOSPITAL COURSE: This is a 64-year-old male who presented from the inpatient rehab facility for direct inpatient admission for an episode of hypotension and the patient complaining that he could not see anything. The patient was recently discharged from the hospital after a colectomy for adenocarcinoma that was complicated by saddle embolism found on CTA. The patient was found to have a rise in his creatinine from 1.4 to 6.[address] at the inpatient rehab. Dr. Park of Nephrology was called and he recommended inpatient admission for treatment of NIKA. On presentation, the patient's vital signs were heart rate 102, blood pressure 106/64, respirations 20, T-max 99.1, and saturating 97% on room air. The patient was admitted to the medical floor for treatment of NIKA. The patient 's NIKA was thought likely to be due to a prerenal etiology from increased output from his colostomy and decreased p.o. intake. Dr. Park was consulted. The patient was fluid resuscitated with sodium bicarbonate in D5W. The patient had a renal ultrasound of bilateral kidney showing no abnormality. The patient was bridged with warfarin for his saddle embolism. The heparin was discontinued after he reached therapeutic range and was continued on warfarin. On 05/22, the patient was transferred to the ICU because he started to decompensate with blood pressures in the 80s over 40s and he did not respond to fluids at that time. A chest x-ray showed mild congestion. A Levophed drip was started at that time. Dr. Park recommended Trialysis catheter and dialysis was begun. Dr. Salguero placed the Trialysis catheter on 05/22/2019. The patient began a dialysis regimen of Wednesday, Wednesday, Wednesday. The patient was given 1 unit of blood on 05/22, due to anemia. The patient was started on meropenem on 05/22, to cover for sepsis. The patient was eventually weaned off pressors. Steroids were started to try to boost his blood pressure. He was transferred to the [facility] at that time. The patient continued to improve vitally and physically. He was transferred to the medical floor. On 05/29/2019, the patient was complaining of shortness of breath and difficulty breathing. A troponin was ordered that was elevated from previous 0.3 and peaked at 2.655. The patient's BNP was also elevated from baseline. The patient was transferred to [facility] at this time. Cardiology was consulted. It was thought that the patient likely had an NSTEMI as no EKG changes were noted. Due to his condition and comorbidities, the patient was unable to undergo catheterization. The patient was managed medically. An echo was performed showing decreased ejection fraction and a LifeVest was recommended to the patient. The patient was initially agreeable to the LifeVest, but during the setting, he was uncomfortable and stated that he did not want the LifeVest placed. Oncology was consulted during the patient's stay to get an idea of the patient's prognosis. They stated that he could be a candidate for chemo after the patient recovered from this insult and was stronger after rehab. They believe his prognosis is possibly 6 months to 1 year. For the patient's diabetes, his insulin regimen was adjusted while in the hospital. He was started on a sliding scale. He did have an episode of hypoglycemia toward the end of his stay that improved after given orange juice and the patient's sugars were then better controlled. He was restarted on his home regimen by the end of the stay. Palliative Care was consulted. DNR was confirmed. The patient would like to get better at rehab. PT/OT also recommended outpatient rehab. Wound Care was consulted for a sacral wound ulcer that was stage III, that remained stable throughout the stay. The patient was discharged to rehab in stable condition. DISPOSITION: Stable, but guarded. DISCHARGE INSTRUCTIONS: 1. Location: Inpatient rehab. 2. Diet: Heart healthy. 3. Activity: Ad deniz with fall precautions and to continue PT, OT at rehab. 4. Follow up with PCP within 3-5 days and will be continually monitored at inpatient rehab. Job ID: [id number] [email or web address]
== END 2019-06-04 15:10 | DRG 673 ==
LOC: SURG B 14:24 → CCU 05-22 02:06 → IMCU/EMU 05-27 19:50 → T4-B 05-28 09:33 → 2NO 05-29 15:05
PROVIDERS: ADMIT Student in an Organized Health Care Education/Training Program; ATTEND Student in an Organized Health Care Education/Training Program
PROC: 3E033XZ Introduction of Vasopressor into Peripheral Vein, Percutaneous Approach (ICD-10-PCS; principal; 2019-05-22)
PROC: 06HY33Z Insertion of Infusion Device into Lower Vein, Percutaneous Approach (ICD-10-PCS; 2019-05-22)
PROC: 30233N1 Transfusion of Nonautologous Red Blood Cells into Peripheral Vein, Percutaneous Approach (ICD-10-PCS; 2019-05-23)
PROC: 0JH63XZ Insertion of Tunneled Vascular Access Device into Chest Subcutaneous Tissue and Fascia, Percutaneous Approach (ICD-10-PCS; 2019-05-26)
PROC: 02HV33Z Insertion of Infusion Device into Superior Vena Cava, Percutaneous Approach (ICD-10-PCS; 2019-05-26)
PROC: B518ZZA Fluoroscopy of Superior Vena Cava, Guidance (ICD-10-PCS; 2019-05-26)
PROC: 5A1D70Z Performance of Urinary Filtration, Intermittent, Less than 6 Hours Per Day (ICD-10-PCS; 2019-05-26)
DX: N17.9 Acute kidney failure, unspecified (principal); L89.153 Pressure ulcer of sacral region, stage 3; I26.92 Saddle embolus of pulmonary artery without acute cor pulmonale; I21.4 Non-ST elevation (NSTEMI) myocardial infarction; R57.8 Other shock; I13.2 Hypertensive heart and chronic kidney disease with heart failure and with stage 5 chronic kidney disease, or end stage renal disease; E87.1 Hypo-osmolality and hyponatremia; E87.2 Acidosis; G93.1 Anoxic brain damage, not elsewhere classified; I82.3 Embolism and thrombosis of renal vein; I50.22 Chronic systolic (congestive) heart failure; N18.6 End stage renal disease; Z66 Do not resuscitate; Z51.5 Encounter for palliative care; E88.09 Other disorders of plasma-protein metabolism, not elsewhere classified; I95.9 Hypotension, unspecified; E78.5 Hyperlipidemia, unspecified; E11.22 Type 2 diabetes mellitus with diabetic chronic kidney disease; E66.9 Obesity, unspecified; E78.00 Pure hypercholesterolemia, unspecified; D63.1 Anemia in chronic kidney disease; R09.02 Hypoxemia; E87.70 Fluid overload, unspecified; Z68.30 Body mass index [BMI] 30.0-30.9, adult; Z85.038 Personal history of other malignant neoplasm of large intestine; Z90.49 Acquired absence of other specified parts of digestive tract; Z79.84 Long term (current) use of oral hypoglycemic drugs; Z79.899 Other long term (current) drug therapy
CPT/HCPCS: 36415; 36416; 36430; 71045; 76770; 80048; 80053; 82274; 82533; 82550; 82553; 82728; 82805; 83036; 83540; 83550; 83605; 83880; 84484; 85014; 85018; 85025; 85049; 85610; 85730; 86704; 86706; 86803; 86850; 86900; 86901; 87340; 90471; 90670; 90935; 93005; 93010; 93306; C1752; C1769; G0009; G0257; J0670; J0690; J1642; J1644; J1720; J1815; J2001; J2185; J2250; J3370; J3490; J7050; J7070; P9016; P9047; Q0162; Q5105